=== PATIENT | female | born 1945 | race Caucasian/White ===

== ENCOUNTER 2017-01-13 12:40 | Inpatient (IN) | payer OTHER ==
[2017-01-13 12:49] VITALS: BMI 41.5
[2017-01-13] MEDS ORDERED: DALBAVANCIN HCL 1,500 MG in DEXTROSE 5%-WATER - 500 ML IVPB ONE (14:18)
--- NOTE | 2017-01-13 14:25 | PDOC ---
History of Present Illness - General Chief Complaint: Redness To Affected Area Stated Complaint: SWOLLEN FACE Time Seen by Provider: 01/13/17 13:58 History Source: Patient Exam Limitations: No Limitations - History of Present Illness Initial Comments: 01/13/17 14:20 Came to emergency department with complaints of swelling and pain to the nose and face. States last night had worsening in her cold symptoms with sneezing and frequent nasal blowing. Woke up this morning with severely swollen, erythematous, and tender nose 01/13/17 14:24 Timing/Duration: reports: changing over time, getting worse Severity: Yes: moderate, severe Location: reports: face Associated Symptoms: reports: blisters, change in skin texture, flushing, headache, rash Past History - Travel Traveled outside of the country in the last 30 days: No Close contact w/someone who was outside of country & ill: No - Past Medical History Allergies/Adverse Reactions: Allergies Allergy/AdvReac Type Severity Reaction Status Date / Time No Known Allergies Allergy Verified 01/13/17 12:45 Home Medications: Ambulatory Orders Amlodipine Besylate 5 mg PO DAILY 01/13/17 Apixaban [Eliquis] 5 mg PO BID 01/13/17 Ergocalciferol (Vitamin D2) [Vitamin D2] 2,000 unit PO DAILY 01/13/17 Furosemide [Lasix] 20 mg PO DAILY 01/13/17 Levothyroxine [Synthroid -] 100 mcg PO DAILY 01/13/17 Lisinopril/Hydrochlorothiazide [Lisinopril-Hctz 20-25 mg Tab] 1 each PO DAILY Metoprolol Succinate [Toprol Xl] 50 mg PO DAILY 01/13/17 Cardiac Disorders: Yes (A.FIB , ABLATION) HTN: Yes Thyroid Disease: Yes (HYPO) - Surgical History Cholecystectomy: Yes - Psycho/Social/Smoking Cessation Hx Anxiety: No Suicidal Ideation: No Smoking History: Never smoked Have you smoked in the past 12 months: No Information on smoking cessation initiated: No Hx Alcohol Use: No Drug/Substance Use Hx: No Substance Use Type: None Review of Systems - Review of Systems Able to Perform ROS?: Yes Is the patient limited Indian proficient: Yes Constitutional: Yes: Symptoms Reported, See HPI, Chills, Fever, Malaise HEENTM: Yes: Symptoms Reported, See HPI, Nose Pain, Nose Congestion (swelling and crusting ) Respiratory: Yes: See HPI. No: Symptoms reported ABD/GI: Yes: See HPI. No: Symptoms Reported : Yes: See HPI. No: Symptoms Reported Musculoskeletal: No: Symptoms Reported Integumentary: Yes: Symptoms Reported, See HPI, Erythema, Flushing Neurological: Yes: Symptoms reported, See HPI, Headache All Other Systems: Reviewed and Negative *Physical Exam - Vital Signs Last Vital Signs Temp Pulse Resp BP Pulse Ox 97.8 F 72 18 152/74 100 01/13/17 12:46 01/13/17 12:46 01/13/17 12:46 01/13/17 12:46 01/13/17 12:46 - Physical Exam General Appearance: Yes: Nourished, Appropriately Dressed, Apparent Distress, Moderate Distress HEENT: positive: DEANNA, TMs Normal, Pharynx Normal (has eroded lower left posterior molar), Nasal Congestion (swelling/ redness/ weeping and crusting ot nose / ), Rhinorrhea Neck: positive: Tender, Supple, Lymphadenopathy (R), Lymphadenopathy (L) Respiratory/Chest: positive: Lungs Clear, Normal Breath Sounds Gastrointestinal/Abdominal: positive: Normal Bowel Sounds, Soft. negative: Tender Musculoskeletal: positive: Normal Inspection Integumentary: positive: Erythema (clinically crusted lesions with grossly swollen nose, into bilateral nares with some purulent drainage noted and anterior aspects. Has a superficial abrasion to distal nose, with no drainage, patient states is atraumatic), Pale Neurologic: positive: recyclable materials sorter II-XII NML intact ED Treatment Course - LABORATORY CBC & Chemistry Diagram: 01/13/17 14:20 01/13/17 14:20 - RADIOLOGY Radiology Studies Ordered: Category Date Time Status CHEST PA & LAT [RAD] Stat Radiology 01/13/17 14:20 Ordered *DC/Admit/Observation/Transfer Diagnosis at time of Disposition: Cellulitis of face - Discharge Dispostion Condition at time of disposition: Stable Admit: Yes
[2017-01-13 14:31] LABS: BASOPHIL 0.4 % (0-2.0); EOSINOPHIL 0.3 % (0-4.5); MCH 28.5 pg (25.7-33.7); MCHC 32.3 g/dl (32.0-36.0); MEAN CELL VOLUME 88.4 fl (80-96); MEAN PLT VOLUME 9.2 fl (7.5-11.1); NEUTROPHILS 79.3 % (42.8-82.8); PLATELET COUNT 151 K/MM3 (134-434); RDW 15.6 % (11.6-15.6); WHITE BLOOD COUNT 10.9 K/mm3 (4.0-10.0)
[2017-01-13 14:44] LABS: INR 2.16 (0.82-1.09); PROTHROMBIN TIME (PATIENT) 24.1 SEC (9.98-11.88)
[2017-01-13] MEDS ORDERED: VANCOMYCIN 1,000 MG in DEXTROSE 5%-WATER - 250 ML IVPB ONE (14:50)
[2017-01-13 14:59] LABS: ALBUMIN 3.5 g/dl (3.4-5.0); BILIRUBIN,TOTAL 0.8 mg/dL (0.2-1.0); COCKROFT - GAULT 68.68; CREATININE 1.2 mg/dL (0.55-1.02); TOT PROT 7.7 g/dl (6.4-8.2)
[2017-01-13] MEDS ORDERED: VANCOMYCIN 1 GRAM (PRE-DOCKED) 250 ML IVPB ONE (15:03)
[2017-01-13 15:36] LABS: URINE APPEARANCE CLEAR; URINE BILIRUBIN NEGATIVE (NEGATIVE); URINE COLOR STRAW; URINE GLUCOSE (UA) NEGATIVE (NEGATIVE); URINE KETONE NEGATIVE (NEGATIVE); URINE NITRITE NEGATIVE (NEGATIVE); URINE PROTEIN NEGATIVE (NEGATIVE); URINE UROBILINOGEN NEGATIVE E.U./dl (0.2-1.0)
[2017-01-13 15:37] LABS: URINE BLOOD 1+ (NEGATIVE); URINE LEUK ESTERASE TRACE (NEGATIVE)
[2017-01-13 15:38] LABS: URINE HYALINE CAST 1 /lpf; URINE RBC <1 /hpf (0-3); URINE WBC 3 /hpf (3-5)
--- NOTE | 2017-01-13 16:21 | PN ---
Teaching Attending Note Name of Resident: Thao Isidro ATTENDING PHYSICIAN STATEMENT I saw and evaluated the patient. I reviewed the resident's note and discussed the case with the resident. I agree with the resident's findings and plan as documented. SUBJECTIVE:71 year old female presents today c/o facial redness and swelling x 1 day. Denies trauma, denies lacerations, denies rash or pruritus. No history of skin infections before. Reports fevers and chills 3 days ago. Took 2 doses of amoxicillin 500 with no improvement of her symptoms. PMH: HTN Hypothyroidism Vaginal Bleeding AFIB Sx : scheduled for an elective hysterectomy EP ablation ALL: none Home Medications Medication Instructions Recorded Amlodipine Besylate 5 mg PO DAILY 01/13/17 Apixaban [Eliquis] 5 mg PO BID 01/13/17 Ergocalciferol (Vitamin D2) 2,000 unit PO DAILY 01/13/17 [Vitamin D2] Furosemide [Lasix] 20 mg PO DAILY 01/13/17 Levothyroxine [Synthroid -] 100 mcg PO DAILY 01/13/17 Lisinopril/Hydrochlorothiazide 1 each PO DAILY 01/13/17 [Lisinopril-Hctz 20-25 mg Tab] Metoprolol Succinate [Toprol Xl] 50 mg PO DAILY 01/13/17 OBJECTIVE: Vital Signs Temperature 97.8 F 01/13/17 12:46 Pulse Rate 72 01/13/17 12:46 Respiratory Rate 18 01/13/17 12:46 Blood Pressure 152/74 01/13/17 12:46 O2 Sat by Pulse Oximetry (%) 100 01/13/17 12:46 General Appearance: Yes: Nourished, Appropriately Dressed HEENT: positive: DEANNA, TMs Normal, Pharynx Normal (has eroded lower left posterior molar), Nasal Congestion, sewlling and redness of the face ( butterfly dristribution) Neck: positive: Tender, Supple, Lymphadenopathy (R), Lymphadenopathy (L) Respiratory/Chest: positive: Lungs Clear, Normal Breath Sounds Gastrointestinal/Abdominal: positive: Normal Bowel Sounds, Soft. negative: Tender Musculoskeletal: positive: Normal Inspection Integumentary: positive: Erythema (clinically crusted lesions with grossly swollen nose, into bilateral nares with some purulent drainage noted and anterior aspects. Has abrasion to the tip of the nose, with no drainage, patient states is atraumatic). Acrylic nails . Neurologic: positive: remote sensing technologist II-XII NML intact Abnormal Lab Results 01/13/17 01/13/17 01/13/17 14:20 14:20 14:20 WBC 10.9 H RBC 3.47 L Hgb 9.9 L Hct 30.7 L Monocytes % 10.6 H INR 2.16 H Sodium 135 L BUN 22 H Creatinine 1.2 H AST 12 L Urine Blood Ur Leukocyte Esterase 01/13/17 15:28 WBC RBC Hgb Hct Monocytes % INR Sodium BUN Creatinine AST Urine Blood 1+ H Ur Leukocyte Esterase Trace H ASSESSMENT AND PLAN: 1. Facial cellulitis - port of entry could have been nostrals and possible trauma to mucosa ( patient has long acrylic nails). No signs of sepsis . No pain. - IV Unasyn /Vanco - demarcate area and monitor for improvement - MRSA swab - if no improvement - st scan max/facial to r/o abscess 2. Acute renal insufficiency - possibly dehydration - hold lasix - IVF - Repeat BMP in am - obtain UA 3. Afib -rate controlled - c/w Eliquis 4. HTN - suboptimal control - increase amlodipine - monitor BP 5. DVT PPX - - on Eliquis Based on patients symptoms upon presentation, failure of outpatient treatment with oral antibiotics and need for broad spectrum IV antibiotic coverge / risk of MDR bacteria -she meets medoical necessity for an inpatient hospitalization .
[2017-01-13] MEDS ORDERED: FUROSEMIDE 20 MG TABLET (FP) PO SCH (16:45)
[2017-01-13] MEDS ORDERED: PATIENT'S OWN MEDICATION (NON-FORMULARY) (Ergocalciferol (Vitamin D2) [Vitamin D2] 2,000 U PO SCH (16:45)
--- NOTE | 2017-01-13 16:51 | HP ---
CHIEF COMPLAINT: " Face swelling" PCP: Dr. Jassi Orantes ([place], [place]) Scrum Project Manager: Dr. Lacy Del Castillo COPY CUTTER: Kaya Best ([facility]) HISTORY OF PRESENT ILLNESS: Patient is a 71 year old female with significant past medical history of Anemia , Hypertension, Hypothyroidism, Atrial fibrillation on elliquis (s/p ablation in Aug, 2015) presented to the ED with the chief complaints of face swelling x 1 day. As per the patient, she was apparently well 3-4 days ago, when she started having fever, T-max 102F associated with sweating but no chills or rigors, resolved after taking Tylenol. Patient also mentions to have runny nose , watery eyes and productive cough producing white phelgm. This morning at 1am, she noticed her nose started swelling with redness around the nose, she went back to sleep, woke up at 5:30am and noticed the swelling had gotten worse, redness started spreading in the cheeks. She then took Amoxicillin 500mg at 5:30am and at 11:30am today but it didn't get better and came to the ED. Patient mentions she got the antibiotics renewed from her Dentist. Today, she only complaints of swelling of nose and redness in the face, no fever , chills, rigors or sweating. No h/o picking the nose, insect bite, nose bleeds. Denies chest pain, sob, cough, abdominal pain, nausea or vomiting. Does get palpitations on/off secondary to atrial fibrillation. Bowel/Bladder habit normal. Sleep/Appetite decreased since illness. Patient reports to have vaginal bleeding few months ago for which she had a CT abdomen/pelvis; Transvaginal ultrasound done and as per her COPY CUTTER is scheduled for a Hysterectomy on 01/30/2017 at [facility]. ER course was notable for: (1) Leukocytosis of 10.9; INR 2.16; Creatinine 1.2/GFR 44.41; blood sugar 86 (2) Vancomycin 1000mg IV once Recent Travel: Moved from [place], [place] a month ago. PAST MEDICAL HISTORY: Anemia, Hypertension, Hypothyroidism, Atrial fibrillation on elliquis (s/p ablation in Aug, 2015) PAST SURGICAL HISTORY: (s/p ablation in Aug, 2015) Social History: Lives alone Smoking: Left 28 years ago, smoked 1 pack/week for 20 years Alcohol: Occasional Drugs: Denies Family History: Father of colon cancer. 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 Allergies No Known Allergies Allergy (Verified 01/13/17 12:45) HOME MEDICATIONS: Home Medications Medication Instructions Recorded Amlodipine Besylate 5 mg PO DAILY 01/13/17 Apixaban [Eliquis] 5 mg PO BID 01/13/17 Ergocalciferol (Vitamin D2) 2,000 unit PO DAILY 01/13/17 [Vitamin D2] Furosemide [Lasix] 20 mg PO DAILY 01/13/17 Levothyroxine [Synthroid -] 100 mcg PO DAILY 01/13/17 Lisinopril/Hydrochlorothiazide 1 each PO DAILY 01/13/17 [Lisinopril-Hctz 20-25 mg Tab] Metoprolol Succinate [Toprol Xl] 50 mg PO DAILY 01/13/17 REVIEW OF SYSTEMS CONSTITUTIONAL: Absent: fever, chills, diaphoresis, generalized weakness, malaise, loss of appetite, weight change HEENT: Absent: rhinorrhea, nasal congestion, throat pain, throat swelling, difficulty swallowing, mouth swelling, ear pain, eye pain, visual changes CARDIOVASCULAR: Absent: chest pain, syncope, palpitations, irregular heart rate, lightheadedness , peripheral edema RESPIRATORY: Absent: cough, shortness of breath, dyspnea with exertion, orthopnea, wheezing, stridor, hemoptysis GASTROINTESTINAL: Absent: abdominal pain, abdominal distension, nausea, vomiting, diarrhea, constipation, melena, hematochezia GENITOURINARY: Absent: dysuria, frequency, urgency, hesitancy, hematuria, flank pain, genital pain MUSCULOSKELETAL: Absent: myalgia, arthralgia, joint swelling, back pain, neck pain SKIN: Present: swelling of the nose, redness of the face Absent: rash, itching, pallor HEMATOLOGIC/IMMUNOLOGIC: Absent: easy bleeding, easy bruising, lymphadenopathy, frequent infections ENDOCRINE: Absent: unexplained weight gain, unexplained weight loss, heat intolerance, cold intolerance NEUROLOGIC: Absent: headache, focal weakness or paresthesias, dizziness, unsteady gait, seizure, mental status changes, bladder or bowel incontinence PSYCHIATRIC: Absent: anxiety, depression, suicidal or homicidal ideation, hallucinations. PHYSICAL EXAMINATION GENERAL: Elderly female, Awake, alert, and fully oriented, in no acute distress. HEAD: Normal with no signs of trauma. EYES: EOM intact, no pallor or icterus. EARS, NOSE, THROAT: Ears normal. Moist mucous membranes. NECK: Supple. LUNGS: Breath sounds equal, clear to auscultation bilaterally. No wheezes, and no crackles. No accessory muscle use. HEART: Regular rate and rhythm, normal S1 and S2 without murmur. ABDOMEN: Soft, nontender, not distended, normoactive bowel sounds, no guarding, no rebound, no masses. No hepatomegaly or splenomegaly. MUSCULOSKELETAL: Normal range of motion at all joints. No bony deformities or tenderness. No CVA tenderness. UPPER EXTREMITIES: 2+ pulses, warm, well-perfused. No cyanosis. No clubbing. No peripheral edema. LOWER EXTREMITIES: 2+ pulses, warm, well-perfused. No calf tenderness. No peripheral edema. NEUROLOGICAL: Cranial nerves II-XII intact. Normal speech. Normal gait. PSYCHIATRIC: Cooperative. Good eye contact. Appropriate mood and affect. SKIN: Swollen nasal area with slight edema over the b/l cheeks; small area of abrasion 0.5 x0.3cm at the tip of the nose, no bleeding from the nose, no nasal bleed, erythema extending from the nose to the b/l cheeks, no weeping or crusting, no tenderness on palpation INTEGUMENTS: Long nails-looks unhygienic. ASSESSMENT/PLAN: Patient is a 71 year old female with significant past medical history of Anemia , Hypertension, Hypothyroidism, Atrial fibrillation on elliquis (s/p ablation in Aug, 2015) presented to the ED with the chief complaints of face swelling x 1 day. # Cellulitis of the face Patient presented with nose swelling, erythema of the face, small abrasion over the tip of the nose. Took two doses of Amoxicillin- didn't help. Has long nails-looks unhygienic-would recommend patient to cut her nails to prevent worsening of infection. On arrival, she was afebrile, hemodynamically stable, slight leukocytosis 10.9 In the ED, patient received one dose of IV Vancomycin Admitted in Med surg Gentle hydration IV Unasyn 3gm Q8H Day 1 Blood culture pending MRSA screen-nares pending If patient's symptoms gets worse, would consider CT scan of head to r/o any abscess # Normocytic anemia Likely due to Dysfunctional uterine bleeding- undergoing Hysterectomy on 01/30 H/H 9.9/30.7 Monitor H/H and if Hb < 7 transfuse # Acute Kidney Injury with questionable CKD Creatinine 1.2 (baseline unknown) GFR- 44.41 Gentle hydration Avoid nephrotoxic drugs # Atrial Fibrillation-rate controlled s/p ablation in Aug, on Elliquis 5mg PO BID to be continued. Continue Metoprolol 50mg Daily # B/L leg swelling Patient reports she doesn't have any h/o CHF but is on Lasix due to B/L swelling Patient mentioned she recently had an Echo, would get the echo results from patients school social worker once the office opens after the holidays Continue Lasix 20mg PO Daily # Hypertension Continue Amlodipine 5mg PO Daily; Lisinopril/HCTZ # Hypothyroidism Continue Levothyroxie 100 mcg # FEN IV NS @ 75mls/hr Electrolytes WNL Sodium controlled diet # Prophylaxis For DVT: On Elliquis For GI: Not indicated # Code Status: Full Code # Dispo: Admitted in Med-Surg. Duration of stay unknown. Illness, Investigation and Plan of care explained to the patient. She verbalized understanding. Case seen and discussed with Dr. Campbell. Visit type - Emergency Visit Emergency Visit: Yes ED Registration Date: 01/13/17 Care time: The patient presented to the Emergency Department on the above date and was hospitalized for further evaluation of their emergent condition. - New Patient This patient is new to me today: Yes Date on this admission: 01/13/17 - Critical Care Critical Care patient: No
[2017-01-13] MEDS: SODIUM CHLORIDE 1,000 ML IV SCH (17:46)
[2017-01-13] MEDS ORDERED: FUROSEMIDE 20 MG TABLET (FP) PO ONE (19:11)
[2017-01-13] MEDS: AMPICILLIN NA/SULBACTAM NA 3 GM in SODIUM CHLORIDE 100 ML IVPB SCH (20:05)
[2017-01-13] MEDS: APIXABAN 5 MG TABLET PO SCH (21:34)
[2017-01-14] MEDS: AMPICILLIN NA/SULBACTAM NA 3 GM in SODIUM CHLORIDE 100 ML IVPB SCH ×3 (02:39→17:03)
[2017-01-14 08:22] LABS: BASOPHIL 0.6 % (0-2.0); EOSINOPHIL 1.4 % (0-4.5); MCH 29.1 pg (25.7-33.7); MCHC 32.9 g/dl (32.0-36.0); MEAN CELL VOLUME 88.4 fl (80-96); MEAN PLT VOLUME 9.5 fl (7.5-11.1); NEUTROPHILS 74.5 % (42.8-82.8); PLATELET COUNT 153 K/MM3 (134-434); RDW 15.3 % (11.6-15.6); WHITE BLOOD COUNT 11.8 K/mm3 (4.0-10.0)
[2017-01-14 08:30] LABS: INR 1.69 (0.82-1.09); PROTHROMBIN TIME (PATIENT) 18.8 SEC (9.98-11.88)
[2017-01-14 08:34] LABS: ALBUMIN 3.2 g/dl (3.4-5.0); CALCIUM 8.7 mg/dL (8.5-10.1)
--- NOTE | 2017-01-14 08:35 | EKG ---
Test Reason : Blood Pressure : / mmHG Vent. Rate : 076 BPM Atrial Rate : 076 BPM P-R Int : 226 ms QRS Dur : 100 ms QT Int : 382 ms P-R-T Axes : 006 059 124 degrees QTc Int : 429 ms SINUS RHYTHM WITH 1ST DEGREE A-V BLOCK NONSPECIFIC T WAVE ABNORMALITY ABNORMAL ECG WHEN COMPARED WITH ECG OF 20-JUL-1998 13:24, [place] INTERVAL HAS INCREASED NONSPECIFIC T WAVE ABNORMALITY NOW EVIDENT IN INFERIOR LEADS NONSPECIFIC T WAVE ABNORMALITY NOW EVIDENT IN ANTERIOR LEADS Confirmed by EUGENIA SHAY MD ([id number]) on 01/14/2017 8:35:23 AM Referred By: Confirmed By:EUGENIA SHAY MD
[2017-01-14 08:37] LABS: BILIRUBIN,TOTAL 0.9 mg/dL (0.2-1.0); COCKROFT - GAULT 74.885; CREATININE 1.1 mg/dL (0.55-1.02); TOT PROT 7.3 g/dl (6.4-8.2)
--- NOTE | 2017-01-14 09:06 | PN ---
Progress Note (short form) - Note Progress Note: ID consult dictated facial cellulitis/erysepilas? vanco/unasyn aso/antidnase b f/u cultures Problem List - Problems (1) Facial cellulitis Code(s): L03.211 - CELLULITIS OF FACE
[2017-01-14] MEDS: FUROSEMIDE 20 MG TABLET (FP) PO SCH (09:37)
[2017-01-14] MEDS: LISINOPRIL 20 MG TABLET (FP) PO SCH (09:37)
[2017-01-14] MEDS: amLODIPine BESYLATE 5 MG TABLET (FP) PO SCH (09:37)
[2017-01-14] MEDS: METOPROLOL SUCCINATE 50 MG TAB.SR.24H (FP) PO SCH (09:37)
[2017-01-14] MEDS: APIXABAN 5 MG TABLET PO SCH ×2 (09:37→21:34)
[2017-01-14] MEDS: SODIUM CHLORIDE 1,000 ML IV SCH (09:47)
[2017-01-14] MEDS ORDERED: PATIENT'S OWN MEDICATION (NON-FORMULARY) (Lisinopril/Hydrochlorothiazide [Lisinopril-Hctz PO SCH (10:00)
[2017-01-14] MEDS ORDERED: ERGOCALCIFEROL (VITAMIN D2) 50,000 UNIT CAPSULE (FP) PO SCH (10:00)
[2017-01-14] MEDS ORDERED: HYDROCHLOROTHIAZIDE 25 MG TABLET (FP) PO SCH (10:00)
[2017-01-14] MEDS ORDERED: LEVOTHYROXINE NA 100 MCG TABLET (FP) PO SCH (10:00)
--- NOTE | 2017-01-14 10:40 | PN ---
Physical Exam: SUBJECTIVE: Patient seen and examined Patient is comfortable with no acute distress. As per patient her face is worse today, more swelling and redness. OBJECTIVE: Vital Signs Temperature 98.1 F 01/14/17 06:00 Pulse Rate 70 01/14/17 06:00 Respiratory Rate 18 01/14/17 06:00 Blood Pressure 164/91 01/14/17 06:00 O2 Sat by Pulse Oximetry (%) 96 01/13/17 21:00 GENERAL: The patient is awake, alert, and fully oriented, in no acute distress. HEAD: Normal with no signs of trauma. EYES: PERRL, extraocular movements intact, sclera anicteric, conjunctiva clear. ENT: Ears normal, oropharynx clear without exudates, moist mucous membranes. NECK: Trachea midline, full range of motion, supple. Facial swelling BL with redness including her nose LUNGS: Breath sounds equal, clear to auscultation bilaterally, no wheezes, no crackles, no accessory muscle use. HEART: Regular rate and rhythm, S1, S2 without murmur, rub or gallop. ABDOMEN: Soft, nontender, nondistended, normoactive bowel sounds, no guarding, no rebound, no hepatosplenomegaly, no masses. EXTREMITIES: 2+ pulses, warm, well-perfused, no edema. NEUROLOGICAL: Cranial nerves II through XII grossly intact. Normal speech, gait is stable. PSYCH: Normal mood, normal affect. SKIN: Warm, dry, normal turgor, no rashes or lesions noted Laboratory Results - last 24 hr 01/14/17 01/14/17 01/14/17 06:30 06:30 06:30 WBC 11.8 H RBC 3.34 L Hgb 9.7 L Hct 29.6 L MCV 88.4 MCHC 32.9 RDW 15.3 Plt Count 153 MPV 9.5 Neutrophils % 74.5 Lymphocytes % 12.8 D Monocytes % 10.7 H Eosinophils % 1.4 D Basophils % 0.6 INR 1.69 H Sodium 140 Potassium 3.8 Chloride 104 Carbon Dioxide 25 Anion Gap 11 BUN 19 H Creatinine 1.1 H Creat Clearance w eGFR 49.10 Random Glucose 81 Calcium 8.7 Total Bilirubin 0.9 AST 8 L D ALT 12 Alkaline Phosphatase 62 Total Protein 7.3 Albumin 3.2 L Active Medications Generic Name Dose Route Start Last Admin Trade Name Freq PRN Reason Stop Dose Admin Amlodipine Besylate 5 mg 01/14/17 10:00 01/14/17 09:37 Norvasc - PO 5 mg DAILY GRACE Administration Apixaban 5 mg 01/13/17 22:00 01/14/17 09:37 Eliquis - PO 5 mg BID GRACE Administration Ergocalciferol 2,000 unit 01/14/17 10:00 01/14/17 09:42 Drisdol - PO Not Given DAILY GRACE Furosemide 20 mg 01/14/17 10:00 01/14/17 09:37 Lasix - PO 20 mg DAILY GRACE Administration Sodium Chloride 1,000 mls @ 75 mls/hr 01/13/17 16:45 01/14/17 09:47 Normal Saline - IV 75 mls/hr ASDIR GRACE Administration Ampicillin Sodium/Sulbactam 100 mls @ 200 mls/hr 01/13/17 18:00 01/14/17 09:37 Sodium 3 gm/ Sodium Chloride IVPB 200 mls/hr Q8H-IV GRACE Administration Vancomycin HCl 1,250 mg/ 250 mls @ 166.667 mls/hr 01/14/17 10:00 Dextrose IVPB BID GRACE Protocol Levothyroxine Sodium 100 mcg 01/14/17 10:00 01/14/17 09:37 Synthroid - PO 100 mcg DAILY GRACE Administration Lisinopril 20 mg 01/14/17 10:00 01/14/17 09:37 Prinivil PO 20 mg DAILY GRACE Administration Metoprolol Succinate 50 mg 01/14/17 10:00 01/14/17 09:37 Toprol Xl - PO 50 mg DAILY GRACE Administration Home Medications Medication Instructions Recorded Amlodipine Besylate 5 mg PO DAILY 01/13/17 Apixaban [Eliquis] 5 mg PO BID 01/13/17 Ergocalciferol (Vitamin D2) 2,000 unit PO DAILY 01/13/17 [Vitamin D2] Furosemide [Lasix] 20 mg PO DAILY 01/13/17 Levothyroxine [Synthroid -] 100 mcg PO DAILY 01/13/17 Lisinopril/Hydrochlorothiazide 1 each PO DAILY 01/13/17 [Lisinopril-Hctz 20-25 mg Tab] Metoprolol Succinate [Toprol Xl] 50 mg PO DAILY 01/13/17 ASSESSMENT/PLAN: Patient is a 71yo female presented with facial swelling. # Acute Facial cellulitis/erysepilas - cause Unknown , No signs of sepsis . No pain. Continue IV Unasyn /Vanco , MRSA swab. if no improvement - CT scan max/facial to r/o abscess # Acute renal insufficiency - possibly dehydration ; hold lasix ; IVF ; Repeat BMP in am ; obtain UA # Afib -rate controlled on Eliquis # HTN - suboptimal control , increase amlodipine , monitor BP DVT PPX - on Eliquis Visit type - Emergency Visit Emergency Visit: Yes ED Registration Date: 01/13/17 Care time: The patient presented to the Emergency Department on the above date and was hospitalized for further evaluation of their emergent condition. - New Patient This patient is new to me today: Yes Date on this admission: 01/14/17 - Critical Care Critical Care patient: No
--- NOTE | 2017-01-14 11:08 | CONS ---
INFECTIOUS DISEASE CONSULTATION: DATE OF CONSULTATION: DATE OF DICTATION: 01/14/2017 HISTORY OF PRESENT ILLNESS: This is a 71-year-old woman who presents to the emergency room with acute onset of facial swelling and erythema yesterday morning. She gives a history of having 3 days of fever and cold symptoms. She took Tylenol at that time. She totally improved. She was afebrile on Saturday. The original febrile illness was accompanied by cough and running nose. As stated on Saturday, she had no fever. Saturday, she woke up at 5:30 in the morning with erythema of her face. She took amoxicillin. She went back to sleep, and at 11:30 she took another amoxicillin, and she came to the emergency room. She denies any fevers or chills. She has no nausea, vomiting, diarrhea or dysuria. She has no history of any strep throat. She has no trouble swallowing. Currently her cough is resolved. She has no shortness of breath. She has not been scratching or picking on her face. She has not had any insect bites, and she has no pets who could have scratched her. She has no rash elsewhere. PAST MEDICAL HISTORY: Notable for anemia, hypertension, hypothyroidism, atrial fibrillation. SURGICAL HISTORY: Notable for an attempted ablation in August of 2015 that failed. She is scheduled for a hysterectomy for vaginal bleeding in January. SOCIAL HISTORY: She lives alone. She is a former smoker. She stopped 30 years ago. No history of any substance use. FAMILY HISTORY: Notable for colon cancer. ALLERGIES: She has no known drug allergies. MEDICATIONS AT HOME: Amlodipine, Eliquis, vitamin D, Lasix, Synthroid, lisinopril, hydrochlorothiazide and metoprolol. She has not been on any medications. PHYSICAL EXAM: General: She is awake and alert. She looks well. Her temperature is 98.1. She has been afebrile since admission. Vital signs: Pulse is 70. Blood pressure 164/91. Respiratory rate is 18. HEENT exam: She is normocephalic. Her eyes are anicteric. She has full extraocular movements. Her neck is supple. She has no thrush. She has no pharyngitis. She has good dentition. Lungs: Clear to auscultation. Heart: Regular rate and rhythm. Abdomen: Soft, nontender. Extremities: Without edema. Skin: She has an erythematous, sort of scaly rash with induration of both her cheeks as well as across her nose. Her nose is swollen with some honey crusting. LABS: Notable for a white count of 10.9, hemoglobin 9.9. Platelets are 151. INR is 2. BUN and creatinine are 19 and 1.1. LFTs are normal. Urinalysis has 3 white cells. Blood cultures and nares screens are pending. SUMMARY: In summary, this is a 71-year-old woman with facial cellulitis that I suspect is erysipelas, given the nature of the lesions and the crusting. PLAN: 1. I would suggest we continue her on vancomycin and UniSyn, as ordered with followup of cultures. 2. Further recommendations to follow based on her clinical course. ELY SALVADOR M.D. DINA/[id number]
[2017-01-14] MEDS: VANCOMYCIN 1,250 MG in DEXTROSE 5%-WATER - 250 ML IVPB SCH ×2 (11:12→21:34)
[2017-01-14] MEDS ORDERED: PT OWN MED DRAWER 7, Y5N ONE ×2 (16:36→20:04)
[2017-01-15] MEDS: AMPICILLIN NA/SULBACTAM NA 3 GM in SODIUM CHLORIDE 100 ML IVPB SCH ×3 (01:40→18:09)
[2017-01-15] MEDS: SODIUM CHLORIDE 1,000 ML IV SCH (06:09)
[2017-01-15] MEDS: LEVOTHYROXINE NA 100 MCG TABLET (FP) PO SCH (06:09)
[2017-01-15 08:49] LABS: MCH 29.1 pg (25.7-33.7); MCHC 32.9 g/dl (32.0-36.0); MEAN CELL VOLUME 88.4 fl (80-96); MEAN PLT VOLUME 9.4 fl (7.5-11.1); PLATELET COUNT 157 K/MM3 (134-434); RDW 15.6 % (11.6-15.6); WHITE BLOOD COUNT 7.2 K/mm3 (4.0-10.0)
[2017-01-15] MEDS ORDERED: PT OWN MED DRAWER 7, Y5N ONE ×3 (08:59→20:43)
[2017-01-15 09:00] LABS: ALBUMIN 3.1 g/dl (3.4-5.0); BILIRUBIN,TOTAL 0.7 mg/dL (0.2-1.0); CALCIUM 8.6 mg/dL (8.5-10.1); COCKROFT - GAULT 82.45; TOT PROT 7.2 g/dl (6.4-8.2)
[2017-01-15] MEDS: CHOLECALCIFEROL (VITAMIN D3) 1,000 UNIT TABLET (FP) PO SCH (09:14)
[2017-01-15] MEDS: APIXABAN 5 MG TABLET PO SCH ×2 (09:15→21:33)
[2017-01-15] MEDS: LISINOPRIL 20 MG TABLET (FP) PO SCH (09:15)
[2017-01-15] MEDS: amLODIPine BESYLATE 5 MG TABLET (FP) PO SCH (09:15)
[2017-01-15] MEDS: FUROSEMIDE 20 MG TABLET (FP) PO SCH (09:15)
[2017-01-15] MEDS: METOPROLOL SUCCINATE 50 MG TAB.SR.24H (FP) PO SCH (09:15)
[2017-01-15] MEDS: VANCOMYCIN 1,250 MG in DEXTROSE 5%-WATER - 250 ML IVPB SCH ×2 (11:01→21:42)
--- NOTE | 2017-01-15 11:26 | PN ---
Progress Note (short form) - Note Progress Note: feels better no fevers NAD Vital Signs Period Temp Pulse Resp BP Sys/Soria Pulse Ox Last 24 Hr 98.3 F-98.7 F 65-70 17-20 144-150/74-79 98 face with less erythema, more crusting of nostrils, nose less swollen cor-rrr lungs clear ext no edema CBC, BMP 01/15/17 08:41 01/15/17 08:41 Microbiology 01/13/17 14:19 Blood - Peripheral Venous Blood Culture - Preliminary NO GROWTH OBTAINED AFTER 24 HOURS, INCUBATION TO CONTINUE FOR 4 DAYS. 01/13/17 14:20 Blood - Peripheral Venous Blood Culture - Preliminary NO GROWTH OBTAINED AFTER 24 HOURS, INCUBATION TO CONTINUE FOR 4 DAYS. nares culture pending a/p facial cellulitis/erysepilas?-improved vanco/unasyn to continue aso/antidnase b ordered f/u cultures d/w hospitalist service
--- NOTE | 2017-01-15 12:52 | PN ---
Physical Exam: SUBJECTIVE: Patient seen and examined at bed side this morning. No complaints. Patient says she noticed the facial swelling has decreased than yesterday. Denies fever, chills, rigors, sweating, chest pain, sob, cough, palpitation, abdominal pain, nausea or vomiting. Bowel/Bladder habit normal. Sleep/Appetite normal. OBJECTIVE: Vital Signs Period Temp Pulse Resp BP Sys/Soria Pulse Ox Last 24 Hr 97.5 F-98.7 F 65-71 17-20 144-161/71-79 98 GENERAL: Elderly female, Awake, alert, and fully oriented, in no acute distress. HEAD: Normal with no signs of trauma. EYES: EOM intact, no pallor or icterus. EARS, NOSE, THROAT: Ears normal. Moist mucous membranes. NECK: Supple. LUNGS: Breath sounds equal, clear to auscultation bilaterally. No wheezes, and no crackles. No accessory muscle use. HEART: Regular rate and rhythm, normal S1 and S2 without murmur. ABDOMEN: Soft, nontender, not distended, normoactive bowel sounds, no guarding, no rebound, no masses. No hepatomegaly or splenomegaly. MUSCULOSKELETAL: Normal range of motion at all joints. No bony deformities or tenderness. No CVA tenderness. UPPER EXTREMITIES: 2+ pulses, warm, well-perfused. No cyanosis. No clubbing. No peripheral edema. LOWER EXTREMITIES: 2+ pulses, warm, well-perfused. No calf tenderness. No peripheral edema. NEUROLOGICAL: Cranial nerves II-XII intact. Normal speech. Normal gait. PSYCHIATRIC: Cooperative. Good eye contact. Appropriate mood and affect. SKIN: Swollen nasal area with slight edema over the b/l cheeks; small area of abrasion 0.25 x0.3cm at the tip of the nose, no bleeding from the nose, no nasal bleed, erythema extending from the nose to the b/l cheeks, slight weeping / crusting over the nose, no tenderness on palpation INTEGUMENTS: Long nails-looks unhygienic. Laboratory Results - last 24 hr 01/15/17 01/15/17 01/15/17 06:50 08:41 08:41 WBC 7.2 D RBC 3.19 L Hgb 9.3 L Hct 28.2 L MCV 88.4 MCHC 32.9 RDW 15.6 Plt Count 157 MPV 9.4 Sodium 140 Potassium 3.3 L Chloride 106 Carbon Dioxide 26 Anion Gap 8 BUN 13 D Creatinine 1.0 Creat Clearance w eGFR 54.81 Random Glucose 76 Calcium 8.6 Total Bilirubin 0.7 D AST 11 L D ALT 12 Alkaline Phosphatase 60 Total Protein 7.2 Albumin 3.1 L Anti-Streptolysin Scrn Cancelled Active Medications Generic Name Dose Route Start Last Admin Trade Name Garciaq PRN Reason Stop Dose Admin Amlodipine Besylate 5 mg 01/14/17 10:00 01/15/17 09:15 Norvasc - PO 5 mg DAILY GRACE Administration Apixaban 5 mg 01/13/17 22:00 01/15/17 09:15 Eliquis - PO 5 mg BID GRACE Administration Cholecalciferol 2,000 unit 01/15/17 10:00 01/15/17 09:14 Vitamin D3 - PO 2,000 unit DAILY GRACE Administration Furosemide 20 mg 01/14/17 10:00 01/15/17 09:15 Lasix - PO 20 mg DAILY GRACE Administration Sodium Chloride 1,000 mls @ 75 mls/hr 01/13/17 16:45 01/15/17 06:09 Normal Saline - IV 75 mls/hr ASDIR GRACE Administration Ampicillin Sodium/Sulbactam 100 mls @ 200 mls/hr 01/13/17 18:00 01/15/17 09:14 Sodium 3 gm/ Sodium Chloride IVPB 200 mls/hr Q8H-IV GRACE Administration Vancomycin HCl 1,250 mg/ 250 mls @ 166.667 mls/hr 01/14/17 10:00 01/15/17 11:01 Dextrose IVPB 166.667 mls/hr BID GRACE Administration Protocol Levothyroxine Sodium 100 mcg 01/15/17 07:00 01/15/17 06:09 Synthroid - PO 100 mcg DAILY@0700 GRACE Administration Lisinopril 20 mg 01/14/17 10:00 01/15/17 09:15 Prinivil PO 20 mg DAILY GRACE Administration Metoprolol Succinate 50 mg 01/14/17 10:00 01/15/17 09:15 Toprol Xl - PO 50 mg DAILY GRACE Administration ASSESSMENT/PLAN: Patient is a 71 year old female with significant past medical history of Anemia , Hypertension, Hypothyroidism, Atrial fibrillation on elliquis (s/p ablation in Aug, 2015) presented to the ED with the chief complaints of face swelling x 1 day. # Cellulitis of the face-Improving Questionable Erysipelas Leukocytosis 11.8--->7.2 Swelling of the face and nose; erythema has improved Admitted in Med surg Gentle hydration IV Unasyn 3gm Q8H Day 2 Blood culture x2 negative MRSA screen of the nares - No MRSA isolated ASO/Antidnase pending ID consult appreciated # Normocytic anemia Likely due to Dysfunctional uterine bleeding- due for Hysterectomy on 01/30/17 H/H 9.3/28.2 Monitor H/H and if Hb < 7 transfuse # Acute Kidney Injury with questionable CKD- Resolved Creatinine 1.2 (baseline unknown) on admission ----> 1.0 Gentle hydration Avoid nephrotoxic drugs # Atrial Fibrillation-rate controlled s/p ablation in Aug, on Elliquis 5mg PO BID to be continued. Continue Metoprolol 50mg Daily # B/L leg swelling Continue Lasix 20mg PO Daily # Hypertension Continue Amlodipine 5mg PO Daily; Lisinopril 20mg daily. HCTZ on hold. # Hypothyroidism Continue Levothyroxie 100 mcg # FEN IV NS @ 75mls/hr Electrolytes WNL Sodium controlled diet # Prophylaxis For DVT: On Elliquis For GI: Not indicated # Code Status: Full Code # Dispo: Admitted in Med-Surg. Duration of stay unknown. Illness, Investigation and Plan of care explained to the patient. She verbalized understanding. Case seen and discussed with Dr. Marlow Problem List - Problems (1) Facial cellulitis Code(s): L03.211 - CELLULITIS OF FACE Visit type - Emergency Visit Emergency Visit: Yes ED Registration Date: 01/13/17 Care time: The patient presented to the Emergency Department on the above date and was hospitalized for further evaluation of their emergent condition. - New Patient This patient is new to me today: No - Critical Care Critical Care patient: No - Discharge Referral Referred to [facility] Med P.C.: No
[2017-01-15] MEDS ORDERED: POTASSIUM CHLORIDE TABS 20 MEQ TABLET.ER (FP) PO ONE (14:00)
--- NOTE | 2017-01-15 16:26 | PN ---
Teaching Attending Note Name of Resident: Thao Isidro ATTENDING PHYSICIAN STATEMENT I saw and evaluated the patient. I reviewed the resident's note and discussed the case with the resident. I agree with the resident's findings and plan as documented. SUBJECTIVE: Patient is feeling better and looking better, less swelling and redness of the face. OBJECTIVE: Vital Signs Temperature 98.7 F 01/15/17 15:30 Pulse Rate 66 01/15/17 15:30 Respiratory Rate 18 01/15/17 15:30 Blood Pressure 118/64 01/15/17 15:30 O2 Sat by Pulse Oximetry (%) 98 01/15/17 09:00 CBCD WBC 7.2 K/mm3 (4.0-10.0) D 01/15/17 08:41 RBC 3.19 M/mm3 (3.60-5.2) L 01/15/17 08:41 Hgb 9.3 GM/dL (10.7-15.3) L 01/15/17 08:41 Hct 28.2 % (32.4-45.2) L 01/15/17 08:41 MCV 88.4 fl (80-96) 01/15/17 08:41 MCHC 32.9 g/dl (32.0-36.0) 01/15/17 08:41 RDW 15.6 % (11.6-15.6) 01/15/17 08:41 Plt Count 157 K/MM3 (134-434) 01/15/17 08:41 MPV 9.4 fl (7.5-11.1) 01/15/17 08:41 CMP Sodium 140 mmol/L (136-145) 01/15/17 08:41 Potassium 3.3 mmol/L (3.5-5.1) L 01/15/17 08:41 Chloride 106 mmol/L (98-107) 01/15/17 08:41 Carbon Dioxide 26 mmol/L (21-32) 01/15/17 08:41 Anion Gap 8 (8-16) 01/15/17 08:41 BUN 13 mg/dL (7-18) D 01/15/17 08:41 Creatinine 1.0 mg/dL (0.55-1.02) 01/15/17 08:41 Creat Clearance w eGFR 54.81 (>60) 01/15/17 08:41 Random Glucose 76 mg/dL (74-106) 01/15/17 08:41 Calcium 8.6 mg/dL (8.5-10.1) 01/15/17 08:41 Total Bilirubin 0.7 mg/dL (0.2-1.0) D 01/15/17 08:41 AST 11 U/L (15-37) L D 01/15/17 08:41 ALT 12 U/L (12-78) 01/15/17 08:41 Alkaline Phosphatase 60 U/L (45-117) 01/15/17 08:41 Total Protein 7.2 g/dl (6.4-8.2) 01/15/17 08:41 Albumin 3.1 g/dl (3.4-5.0) L 01/15/17 08:41 Current Medications Generic Name Dose Route Start Last Admin Trade Name Freq PRN Reason Stop Dose Admin Amlodipine Besylate 5 mg 01/14/17 10:00 01/15/17 09:15 Norvasc - PO 5 mg DAILY GRACE Administration Apixaban 5 mg 01/13/17 22:00 01/15/17 09:15 Eliquis - PO 5 mg BID GRACE Administration Cholecalciferol 2,000 unit 01/15/17 10:00 01/15/17 09:14 Vitamin D3 - PO 2,000 unit DAILY GRACE Administration Furosemide 20 mg 01/14/17 10:00 01/15/17 09:15 Lasix - PO 20 mg DAILY GRACE Administration Sodium Chloride 1,000 mls @ 75 mls/hr 01/13/17 16:45 01/15/17 06:09 Normal Saline - IV 75 mls/hr ASDIR GRACE Administration Ampicillin Sodium/Sulbactam 100 mls @ 200 mls/hr 01/13/17 18:00 01/15/17 09:14 Sodium 3 gm/ Sodium Chloride IVPB 200 mls/hr Q8H-IV GRACE Administration Vancomycin HCl 1,250 mg/ 250 mls @ 166.667 mls/hr 01/14/17 10:00 01/15/17 11:01 Dextrose IVPB 166.667 mls/hr BID GRACE Administration Protocol Levothyroxine Sodium 100 mcg 01/15/17 07:00 01/15/17 06:09 Synthroid - PO 100 mcg DAILY@0700 GRACE Administration Lisinopril 20 mg 01/14/17 10:00 01/15/17 09:15 Prinivil PO 20 mg DAILY GRCAE Administration Metoprolol Succinate 50 mg 01/14/17 10:00 01/15/17 09:15 Toprol Xl - PO 50 mg DAILY GRACE Administration Home Medications Medication Instructions Recorded Amlodipine Besylate 5 mg PO DAILY 01/13/17 Apixaban [Eliquis] 5 mg PO BID 01/13/17 Ergocalciferol (Vitamin D2) 2,000 unit PO DAILY 01/13/17 [Vitamin D2] Furosemide [Lasix] 20 mg PO DAILY 01/13/17 Levothyroxine [Synthroid -] 100 mcg PO DAILY 01/13/17 Lisinopril/Hydrochlorothiazide 1 each PO DAILY 01/13/17 [Lisinopril-Hctz 20-25 mg Tab] Metoprolol Succinate [Toprol Xl] 50 mg PO DAILY 01/13/17 ASSESSMENT AND PLAN: Patient is a 71yo female presented with facial swelling and redness. # Acute Facial cellulitis/erysepilas - improving on IV Unasyn /Vanco , MRSA swab. if no improvement - CT scan max/facial to r/o abscess # Acute renal insufficiency - improving on IVF continue for now. # Afib -rate controlled on Eliquis, and Toprol # HTN - contolled on amlodipine, toprol and lisinopril and Lasix DVT Px - on Eliquis discharge in am if continues to improve discussed with Dr. Siddiqui
[2017-01-16] MEDS: AMPICILLIN NA/SULBACTAM NA 3 GM in SODIUM CHLORIDE 100 ML IVPB SCH ×2 (02:13→09:27)
[2017-01-16] MEDS: LEVOTHYROXINE NA 100 MCG TABLET (FP) PO SCH (07:01)
[2017-01-16 07:18] LABS: MCHC 32.8 g/dl (32.0-36.0); MEAN CELL VOLUME 88.6 fl (80-96); MEAN PLT VOLUME 9.1 fl (7.5-11.1); PLATELET COUNT 172 K/MM3 (134-434); RDW 15.2 % (11.6-15.6); WHITE BLOOD COUNT 6.1 K/mm3 (4.0-10.0)
[2017-01-16 07:42] LABS: CALCIUM 8.5 mg/dL (8.5-10.1); COCKROFT - GAULT 82.45
[2017-01-16 08:07] LABS: ASLO SCREEN 123.6 IU/mL (0.0-200.0)
[2017-01-16] MEDS: CHOLECALCIFEROL (VITAMIN D3) 1,000 UNIT TABLET (FP) PO SCH (09:26)
[2017-01-16] MEDS: amLODIPine BESYLATE 5 MG TABLET (FP) PO SCH (09:26)
[2017-01-16] MEDS: SODIUM CHLORIDE 1,000 ML IV SCH (09:27)
[2017-01-16] MEDS: LISINOPRIL 20 MG TABLET (FP) PO SCH (09:27)
[2017-01-16] MEDS: METOPROLOL SUCCINATE 50 MG TAB.SR.24H (FP) PO SCH (09:27)
[2017-01-16] MEDS: FUROSEMIDE 20 MG TABLET (FP) PO SCH (09:27)
[2017-01-16] MEDS: APIXABAN 5 MG TABLET PO SCH (09:27)
--- NOTE | 2017-01-16 10:24 | PN ---
Progress Note (short form) - Note Progress Note: feels well swelling erythema improved Vital Signs Period Temp Pulse Resp BP Sys/Soria Pulse Ox Last 24 Hr 97.7 F-98.7 F 57-76 18-20 118-158/64-85 cor-rrr lungs clear abd soft,nt ext no edema face with resolving erythema and edema minimal crusting noted scab on nose CBC, BMP 01/16/17 06:30 01/16/17 06:30 Microbiology 01/13/17 14:19 Blood - Peripheral Venous Blood Culture - Preliminary NO GROWTH OBTAINED AFTER 48 HOURS, INCUBATION TO CONTINUE FOR 3 DAYS. 01/13/17 14:20 Blood - Peripheral Venous Blood Culture - Preliminary NO GROWTH OBTAINED AFTER 48 HOURS, INCUBATION TO CONTINUE FOR 3 DAYS. 01/13/17 20:50 Nares - Mrsa Screen - Left MRSA Screen - Final NO MRSA ISOLATED 01/13/17 20:50 Nares - Mrsa Screen - Right MRSA Screen - Final NO MRSA ISOLATED a/p facial cellulitis most c/w erysepilas mrsa cultures nares negative clinically improving day #3 vancomycin/unasyn can switch to keflex 500 po QID for 7 days Problem List - Problems (1) Facial cellulitis Code(s): L03.211 - CELLULITIS OF FACE
[2017-01-16] MEDS: VANCOMYCIN 1,250 MG in DEXTROSE 5%-WATER - 250 ML IVPB SCH (10:25)
--- NOTE | 2017-01-16 14:32 | DS ---
Physical Exam: SUBJECTIVE: Patient seen and examined at bed side this morning. No complaints. Patient mentions the swelling has decreased and the redness has improved. OBJECTIVE: Vital Signs Period Temp Pulse Resp BP Sys/Soria Pulse Ox Last 24 Hr 97.7 F-98.7 F 57-76 16-20 118-158/64-85 98 PHYSICAL EXAM GENERAL: Elderly female, Awake, alert, and fully oriented, in no acute distress. HEAD: Normal with no signs of trauma. EYES: EOM intact, no pallor or icterus. EARS, NOSE, THROAT: Ears normal. Moist mucous membranes. NECK: Supple. LUNGS: Breath sounds equal, clear to auscultation bilaterally. No wheezes, and no crackles. No accessory muscle use. HEART: Regular rate and rhythm, normal S1 and S2 without murmur. ABDOMEN: Soft, nontender, not distended, normoactive bowel sounds, no guarding, no rebound, no masses. No hepatomegaly or splenomegaly. MUSCULOSKELETAL: Normal range of motion at all joints. No bony deformities or tenderness. No CVA tenderness. UPPER EXTREMITIES: 2+ pulses, warm, well-perfused. No cyanosis. No clubbing. No peripheral edema. LOWER EXTREMITIES: 2+ pulses, warm, well-perfused. No calf tenderness. No peripheral edema. NEUROLOGICAL: Cranial nerves II-XII intact. Normal speech. Normal gait. PSYCHIATRIC: Cooperative. Good eye contact. Appropriate mood and affect. SKIN: Swollen nasal area with slight edema over the b/l cheeks- improving; small area of abrasion 0.25 x0.3cm at the tip of the nose, no bleeding from the nose, no nasal bleed, erythema extending from the nose to the b/l cheeks, slight weeping/ crusting over the nose, no tenderness on palpation INTEGUMENTS: Long nails-looks unhygienic. LABS Laboratory Results - last 24 hr 01/15/17 01/16/17 01/16/17 06:50 06:30 06:30 WBC 6.1 RBC 3.23 L Hgb 9.4 L Hct 28.6 L MCV 88.6 MCHC 32.8 RDW 15.2 Plt Count 172 MPV 9.1 Sodium 141 Potassium 3.9 Chloride 109 H Carbon Dioxide 25 Anion Gap 7 L BUN 13 Creatinine 1.0 Random Glucose 79 Calcium 8.5 Magnesium 2.0 Anti-Streptolysin Scrn 123.6 Microbiology 01/13/17 14:20 Blood - Peripheral Venous Blood Culture - Preliminary NO GROWTH OBTAINED AFTER 72 HOURS, INCUBATION TO CONTINUE FOR 2 DAYS. 01/13/17 14:19 Blood - Peripheral Venous Blood Culture - Preliminary NO GROWTH OBTAINED AFTER 48 HOURS, INCUBATION TO CONTINUE FOR 3 DAYS. 01/13/17 20:50 Nares - Mrsa Screen - Left MRSA Screen - Final NO MRSA ISOLATED 01/13/17 20:50 Nares - Mrsa Screen - Right MRSA Screen - Final NO MRSA ISOLATED HOSPITAL COURSE: Date of Admission:01/13/17 Date of Discharge: 01/16/17 Patient is a 71 year old female with significant past medical history of Anemia , Hypertension, Hypothyroidism, Atrial fibrillation on elliquis (s/p ablation in Aug, 2015) presented to the ED with the chief complaints of face swelling x 1 day. Admitted with the diagnosis of Cellulitis of the face. Patient presented with nose swelling, erythema of the face, small abrasion over the tip of the nose. Took two doses of Amoxicillin- didn't help. Patient was admitted in Med surg. Was treated with IV Unasyn 3gm Q8H. Face swelling decreased, erythema of the face are resolving. Blood cultures and MRSA Screen in nares were negative. Patient was afebrile and hemodynamically stable during hospital stay. Discharging the patient on Keflex 500mg PO QID x 7 days (should finish on 2016). Normocytic anemia- Likely due to Dysfunctional uterine bleeding- due for Hysterectomy on 01/30/17. Didn't require blood transfusion this admission. Acute Kidney Injury with questionable CKD- Resolved with IV hydration. Atrial Fibrillation-rate controlled s/p ablation in Aug, on Elliquis 5mg PO BID to be continued. Continue Metoprolol 50mg Daily B/L leg swelling: Patient reports she recently had an ECHO but doesn't have any heart failure. Was given Lasix 20mg PO Daily by her PCP for B/L Leg swelling. However, the leg swelling could be due to use of Amlodipine. Would consider changing amlodipine to another hypertensive medication when she follows up in a week with her PCP. Hypertension- controlled. Continue Amlodipine 5mg PO Daily; Lisinopril 20mg daily. HCTZ was on hold since patient was on IV fluids. To be continued upon discharge. Hypothyroidism: Continue Levothyroxie 100 mcg Plan of care explained to the patient. She verbalized understanding. Case seen and discussed with Dr. Moody. Minutes to complete discharge: 45 Discharge Summary Reason For Visit: CELLULITIS OF FACE Current Active Problems Facial cellulitis (Acute) Condition: Improved - Instructions Diet, Activity, Other Instructions: You were admitted for the treatment of cellulitis of the face (Infection) and was treated with IV antibiotics. Please take the antibiotic (Keflex) 500mg 4times a day for 7 days starting at 01/17/17 Please follow up with your primary physician in a week. Return to the Emergency Department if your symptoms get worse or if you develop any new symptoms. REGUALR DIET MAY TAKE SHOWER Referrals: Jassi Burton MD [Primary Care Provider] - 1 Week Disposition: HOME - Home Medications Comprehensive Discharge Medication List: Ambulatory Orders Amlodipine Besylate 5 mg PO DAILY 01/13/17 Apixaban [Eliquis] 5 mg PO BID 01/13/17 Ergocalciferol (Vitamin D2) [Vitamin D2] 2,000 unit PO DAILY 01/13/17 Furosemide [Lasix] 20 mg PO DAILY 01/13/17 Levothyroxine [Synthroid -] 100 mcg PO DAILY 01/13/17 Lisinopril/Hydrochlorothiazide [Lisinopril-Hctz 20-25 mg Tab] 1 each PO DAILY Metoprolol Succinate [Toprol Xl] 50 mg PO DAILY 01/13/17 Cephalexin [Keflex] 500 mg PO QID #28 capsule 01/16/17 Problem List - Problems (1) Facial cellulitis Code(s): L03.211 - CELLULITIS OF FACE This patient is new to me today: No Emergency Visit: Yes ED Registration Date: 01/13/17 Care time: The patient presented to the Emergency Department on the above date and was hospitalized for further evaluation of their emergent condition. Critical Care patient: No - Discharge Referral Referred to [facility] Med P.C.: No
--- NOTE | 2017-01-16 14:34 | PN ---
Teaching Attending Note Name of Resident: Thao Isidro ATTENDING PHYSICIAN STATEMENT I saw and evaluated the patient. I reviewed the resident's note and discussed the case with the resident. I agree with the resident's findings and plan as documented. SUBJECTIVE: no fever or chills, has no pain in face OBJECTIVE: NAD Cv : RRR Lungs: CTAB ext : trace pitting edema on legs Skin : FAce with erythematous, slightly warmer skin , on cheeks , and nose . no LAP ASSESSMENT AND PLAN: 71 y/o lady with multiple medical problems who presented with facial erythema and was found to have cellulitis 1- facial cellulitis vs Eryspilase : improved appreciate ID help, switch to po keflex x 7 days 2- GALLO : resolved . dc IVF 3- Other chronic medical problems , cont home meds Dc home
[2017-01-16 15:03] VITALS: BP 143/95; PULSE 90; TEMP 97.4
[2017-01-18 00:07] LABS: ANTI-DNAse B <78 U/mL (0-120)
== END 2017-01-16 15:58 | disposition home or self-care (01) | DRG 603 ==
LOC: JER 12:40 → JERBED 16:07 → J8W 19:05
PROVIDERS: ADMIT Internal Medicine; ATTEND Internal Medicine
DX: L03.211 Cellulitis of face (principal); N17.9 Acute kidney failure, unspecified; I10 Essential (primary) hypertension; E03.9 Hypothyroidism, unspecified; I48.91 Unspecified atrial fibrillation; E86.0 Dehydration; A46 Erysipelas; Z79.01 Long term (current) use of anticoagulants; Z87.891 Personal history of nicotine dependence; D64.9 Anemia, unspecified
CPT/HCPCS: 36415; 71020-TC; 80048; 80053; 81003; 81015; 83735; 85025; 85027; 85610; 86063; 86215; 87040; 87081; 93005; 93010; 99282-25

== ENCOUNTER 2019-01-14 14:44 | Observation (INO) | payer OTHER | END 2019-01-15 18:58 | disposition home or self-care (01) | LOC: JER 14:44 → JERBED 16:34 → J4W 19:37 ==

== ENCOUNTER 2019-06-16 20:58 | Inpatient (IN) | payer OTHER ==
--- NOTE | 2019-06-16 21:11 | PDOC ---
Rapid Medical Evaluation Time Seen by Provider: 06/16/19 21:08 Medical Evaluation: Allergies Allergy/AdvReac Type Severity Reaction Status Date / Time No Known Allergies Allergy Verified 01/13/17 12:45 06/16/19 21:08 I have performed a brief in-person evaluation of this patient. The patient presents with a chief complaint of:Palpitations x 1 hr. No SOB, CP, diaphoreiss, n/v. H/o afib s/p unsuccessful ablation 5 years ago at [facility], on eliquis and metoprolol, s/p implantation of loop monitor (medtronic). S/p admission for same 01/[address] Maurice of [facility]. Pertinent physical exam findings:tachy to 105 w/ BP 205/108, well samson I have ordered the following:ekg/cxr/labs, taken directly to main ED The patient will proceed to the ED for further evaluation. 06/16/19 21:15 Discharge Disposition - Diagnosis Palpitations - Referrals - Patient Instructions - Post Discharge Activity
[2019-06-16 22:26] LABS: BASO % 0.6 % (0-2.0); EOS % 1.8 % (0-4.5); HEMATOCRIT 37.5 % (32.4-45.2); HEMOGLOBIN 12.2 GM/dL (10.7-15.3); LYMPH % 15.9 % (8-40); MCH 30.2 pg (25.7-33.7); MCHC 32.4 g/dl (32.0-36.0); MEAN CELL VOLUME 93.1 fl (80-96); MEAN PLT VOLUME 9.8 fl (7.5-11.1); NEUT % 73.7 % (42.8-82.8); PLATELET COUNT 206 K/MM3 (134-434); RBC 4.03 M/mm3 (3.60-5.2); RDW 14.3 % (11.6-15.6); WHITE BLOOD COUNT 7.6 K/mm3 (4.0-10.0)
[2019-06-16 22:54] LABS: ALBUMIN 3.5 g/dl (3.4-5.0); BILIRUBIN,TOTAL 0.4 mg/dL (0.2-1); BLOOD UREA NITROGEN 23.8 mg/dL (7-18); CALCIUM 8.8 mg/dL (8.5-10.1); CREATININE 1.2 mg/dL (0.55-1.3)
[2019-06-16] MEDS ORDERED: FUROSEMIDE 20 MG TABLET (FP) PO ONE (22:56)
[2019-06-16] MEDS ORDERED: ASPIRIN 81 MG CHEWABLE TABLETS PO ONE (22:56)
[2019-06-16 22:57] LABS: INR 1.19 (0.83-1.09); PROTHROMBIN TIME (PATIENT) 14.1 SEC (9.7-13.0)
[2019-06-16] MEDS ORDERED: METOPROLOL TARTRATE 50 MG TABLET (FP) PO ONE (23:01)
--- NOTE | 2019-06-16 23:06 | PDOC ---
Documentation entered by Stephenie Shin SCRIBE, acting as scribe for Yanira Pompa MD. Yanira Pompa MD: This documentation has been prepared by the Aleida zuniga Adrianna, SCRIBE, under my direction and personally reviewed by me in its entirety. I confirm that the documentation accurately reflects all work, treatment, procedures, and medical decision making performed by me. History of Present Illness - General Chief Complaint: Palpitations Stated Complaint: FAST HEARTBEAT Time Seen by Provider: 06/16/19 21:08 - History of Present Illness Initial Comments: The patient is a 74 year old female, with a significant PMH of Afib (on eliqui)s , loop recorder (syncopal episode x5 months ago), hypothyroidism, and HTN, who presents to the ED BIBEMS for evaluation of tachycardia and chest palpitations since earlier tonight. Patient notes she was eating dinner, when she had an Afib experience that went into a rapid heart beat. She states her heart rate was 110, and she could feel her heart beating quicker than normal. Patient notes this has happened in the past, but it typically resolves after a few minutes. She states her palpitations are less intense while in the ED. Patient reports a similar episode 5 months ago, where she was seen in [facility] and admitted. Allergies: NKDA Surgical History: Cholecystectomy Social History: Denies EtOH, tobacco, or illicit drug use PCP: JODI Hash Slinger: Dr. Del Castillo/Dr. Maurice Past History - Past Medical History Allergies/Adverse Reactions: Allergies Allergy/AdvReac Type Severity Reaction Status Date / Time No Known Allergies Allergy Verified 01/13/17 12:45 Home Medications: Ambulatory Orders Amlodipine Besylate 5 mg PO DAILY 01/13/17 Apixaban [Eliquis] 5 mg PO BID 01/13/17 Ergocalciferol (Vitamin D2) [Vitamin D2] 2,000 unit PO DAILY 01/13/17 Furosemide [Lasix] 20 mg PO DAILY 01/13/17 Levothyroxine [Synthroid -] 100 mcg PO DAILY 01/13/17 Metoprolol Succinate [Toprol Xl] 50 mg PO BID 01/13/17 Cardiac Disorders: Yes (A.FIB , ABLATION that failed,CAD) COPD: No CHF: No HTN: Yes Thyroid Disease: Yes (HYPO) - Surgical History Cholecystectomy: Yes - Immunization History Immunization Up to Date: No - Psycho Social/Smoking Cessation Hx Smoking History: Never smoked Have you smoked in the past 12 months: No Hx Alcohol Use: No Drug/Substance Use Hx: No Substance Use Type: None Hx Substance Use Treatment: No Review of Systems - Review of Systems Comments:: GENERAL/CONSTITUTIONAL: No fever or chills. No weakness. HEAD, EYES, EARS, NOSE AND THROAT: No change in vision. No ear pain or discharge. No sore throat. CARDIOVASCULAR: +Palpitations. +Rapid heart rate. No chest pain or shortness of breath. RESPIRATORY: No cough, wheezing, or hemoptysis. GASTROINTESTINAL: No nausea, vomiting, diarrhea or constipation. GENITOURINARY: No dysuria, frequency, or change in urination. MUSCULOSKELETAL: No joint or muscle swelling or pain. No neck or back pain. SKIN: No rash NEUROLOGIC: No headache, vertigo, loss of consciousness, or change in strength/ sensation. ENDOCRINE: No increased thirst. No abnormal weight change. HEMATOLOGIC/LYMPHATIC: No anemia, easy bleeding, or history of blood clots. ALLERGIC/IMMUNOLOGIC: No hives or skin allergy. *Physical Exam - Vital Signs Last Vital Signs Temp Pulse Resp BP Pulse Ox 97.9 F 105 H 20 205/108 H 97 06/16/19 21:10 06/16/19 21:10 06/16/19 21:10 06/16/19 21:10 06/16/19 21:10 - Physical Exam Comments: GENERAL: Awake, alert, and fully oriented, in no acute distress. Well nourshed and well developed. HEAD: No signs of trauma. Normocephalic. EYES: PERRLA, EOMI, sclera anicteric, conjunctiva clear ENT: Auricles normal inspection, hearing grossly normal, nares patent, oropharynx clear without exudates. Moist mucosa NECK: Normal ROM, supple, no lymphadenopathy, JVD, or masses LUNGS: Breath sounds equal, clear to auscultation bilaterally. No wheezes, and no crackles, no bruits HEART: +Tachycardic (HR 105). Regular rhythm, normal S1 and S2, no murmurs, rubs or gallops ABDOMEN: +Protuberant belly. Soft, nontender, normoactive bowel sounds. No guarding, no rebound. No masses EXTREMITIES: +Right ankle ecchymosis that travels to [place]. (2/2 hitting ankle on stairs). Normal range of motion, no edema. No clubbing or cyanosis. No cords , erythema, or tenderness NEUROLOGICAL: Cranial nerves II through XII grossly intact. Normal speech, normal gait SKIN: Warm, Dry, normal turgor, no rashes or lesions noted. Heart Score/ECG Review - ECG Intrepretation Comment:: Sinus tachycardia. ST & T wave abnormality, consider inferolateral ischemia. Vent rate 107bpm, PA interval 166ms, QRS duration 92ms, QT/QTc 332/443ms, P-R-T axes * 43 204 ED Treatment Course - LABORATORY CBC & Chemistry Diagram: 06/16/19 21:55 06/16/19 21:55 - ADDITIONAL ORDERS Additional order review: Laboratory Results 06/16/19 06/16/19 06/16/19 23:45 22:30 21:55 PT with INR 14.10 H INR 1.19 H Sodium 141 Potassium 4.0 Chloride 107 Carbon Dioxide 27 Anion Gap 7 L BUN 23.8 H Creatinine 1.2 Est GFR (CKD-EPI)AfAm 51.92 Est GFR (CKD-EPI)NonAf 44.80 Random Glucose 114 H Calcium 8.8 Total Bilirubin 0.4 AST 32 ALT 33 Alkaline Phosphatase 187 H Creatine Kinase Troponin I Total Protein 8.0 Albumin 3.5 Urine Color Yellow Urine Appearance Clear Urine pH 6.0 Ur Specific [place] 1.011 Urine Protein Trace Urine Glucose (UA) Negative Urine Ketones Negative Urine Blood Negative Urine Nitrite Negative Urine Bilirubin Negative Urine Urobilinogen 0.2 Ur Leukocyte Esterase Negative 06/16/19 21:55 PT with INR INR Sodium Potassium Chloride Carbon Dioxide Anion Gap BUN Creatinine Est GFR (CKD-EPI)AfAm Est GFR (CKD-EPI)NonAf Random Glucose Calcium Total Bilirubin AST ALT Alkaline Phosphatase Creatine Kinase 59 Troponin I < 0.02 Total Protein Albumin Urine Color Urine Appearance Urine pH Ur Specific [place] Urine Protein Urine Glucose (UA) Urine Ketones Urine Blood Urine Nitrite Urine Bilirubin Urine Urobilinogen Ur Leukocyte Esterase 06/16/19 21:55 RBC 4.03 MCV 93.1 MCHC 32.4 RDW 14.3 MPV 9.8 D Neutrophils % 73.7 D Lymphocytes % 15.9 D Monocytes % 8.0 Eosinophils % 1.8 Basophils % 0.6 - Medications Given in the ED: ED Medications Discontinued Medications Generic Name Dose Route Start Last Admin Trade Name Karan PRN Reason Stop Dose Admin Aspirin 162 mg 06/16/19 22:56 06/16/19 23:13 Asa - PO 06/16/19 22:57 162 mg ONCE ONE Administration Metoprolol Tartrate 50 mg 06/16/19 23:01 06/16/19 23:13 Lopressor - PO 06/16/19 23:02 50 mg ONCE ONE Administration Medical Decision Making - Medical Decision Making 06/16/19 22:48 74-year-old female with a past medical history of paroxysmal A. fib [id number]= [id number] has undergone normal EP study and ILR implant with normal LV ejection fraction in April 2018, stress test minimal distal LAD ischemia, hypertension, hypothyroidism, hyperlipidemia, diastolic dysfunction without heart failure Status post placement of implantable loop recorder History of radiofrequency ablation History of palpitations Hypothyroidism 06/16/19 23:03 Patient states that she is taking all her medications including her Eliquis 5 mg , metoprolol 50 mg twice daily, Lipitor 40, Norvasc 5mg, Synthroid 100 mcg, Systolic blood pressure has been between 195 and 208 and her heart rate has been about 105 Will admit to OBS telemetry I have spoken with her construction foreman Dr. Adrian Maurice who will consult on this case Plan aspirin, additional metoprolol, Lasix admission 06/17/19 01:10 YR=233/89 pulse=87 Discharge - Discharge Information Problems reviewed: Yes Clinical Impression/Diagnosis: Palpitations, Tachycardia, Hypertension, accelerated, H/O radiofrequency ablation for complex left atrial arrhythmia Hypothyroidism Qualifiers: Hypothyroidism type: unspecified Qualified Code(s): E03.9 - Hypothyroidism, unspecified Ankle injury Qualifiers: Encounter type: initial encounter Laterality: right Qualified Code(s): S99.911A - Unspecified injury of right ankle, initial encounter Condition: Good - Admission Yes - Follow up/Referral - Patient Discharge Instructions - Post Discharge Activity
[2019-06-16] MEDS ORDERED: ASPIRIN 81 MG CHEWABLE TABLETS ONE (23:10)
[2019-06-16] MEDS ORDERED: FUROSEMIDE 40 MG TABLET (FP) ONE (23:11)
[2019-06-16] MEDS ORDERED: FUROSEMIDE 40 MG TABLET (FP) PO ONE (23:16)
[2019-06-16 23:57] LABS: URINE APPEARANCE CLEAR; URINE BILIRUBIN NEGATIVE (NEGATIVE); URINE COLOR YELLOW; URINE GLUCOSE (UA) NEGATIVE (NEGATIVE); URINE KETONE NEGATIVE (NEGATIVE); URINE LEUK ESTERASE NEGATIVE (NEGATIVE); URINE NITRITE NEGATIVE (NEGATIVE); URINE PROTEIN TRACE (NEGATIVE); URINE UROBILINOGEN 0.2 mg/dL (0.2-1.0)
--- NOTE | 2019-06-17 00:08 | PN ---
Teaching Attending Note Name of Resident: Isabella Arcos ATTENDING PHYSICIAN STATEMENT I saw and evaluated the patient. I reviewed the resident's note and discussed the case with the resident. I agree with the resident's findings and plan as documented. SUBJECTIVE: Patient is a 74 year old woman with a PMH of Afib (on eliquis-failed ablations) , Loop recorder (syncopal episode x5 months ago), Hypothyroidism, and HTN, who presents to the ER with tachycardia and chest palpitations since earlier tonight. Patient notes she was eating dinner, when she had an Afib experience that went into a rapid heart beat. She states her heart rate was 110, and she could feel her heart beating quicker than normal. Patient notes this has happened in the past, but it typically resolves after a few minutes. She states her palpitations are less intense while in the ER. Patient reports a similar episode 5 months ago, where she was seen in [facility] and admitted. Denies fever, chills, vomiting, chest pain, SOB, abdominal pain, dysuria, or diarrhea. Deneis tobacco, alcohol or illicit drug use. No recent travels or obvious sick contacts. Has FH of HTN and Colon cancer. OBJECTIVE: Alert Vital Signs Period Temp Pulse Resp BP Sys/Soria Pulse Ox Last 24 Hr 97.9 F 105 20 205/108 97 HEENT: No Jaundice, eye redness or discharge, PERRLA, EOMI. Normocephalic, atraumatic. External ears are normal and hearing is grossly intact. No nasal discharge. Neck: Supple, nontender. No palpable adenopathy or thyromegaly. No JVD Chest: Good effort. Clear to auscultation and percussion. Heart: Tachycardia. No S3, rub or murmur Abdomen: Not distended, soft, nontender and no HSM. No rebound or guarding. Normal bowel sounds. Ext: Peripheral pulses intact. No leg edema. Bruises on right lower leg area. Skin: Warm and dry. No petechiae, rash or ecchymosis. Neuro: Alert. Oriented x3. CN 2-12 grossly intact. Sensation grossly intact in all four extremities and DTR are symmetric. Psych: Appropriate mood and affect. Good insight. Home Medications Medication Instructions Recorded Amlodipine Besylate 5 mg PO DAILY 01/13/17 Apixaban [Eliquis] 5 mg PO BID 01/13/17 Ergocalciferol (Vitamin D2) 2,000 unit PO DAILY 01/13/17 [Vitamin D2] Furosemide [Lasix] 20 mg PO DAILY 01/13/17 Levothyroxine [Synthroid -] 100 mcg PO DAILY 01/13/17 Metoprolol Succinate [Toprol Xl] 50 mg PO BID 01/13/17 Abnormal Lab Results 06/16/19 06/16/19 21:55 22:30 PT with INR 14.10 H INR 1.19 H Anion Gap 7 L BUN 23.8 H Random Glucose 114 H Alkaline Phosphatase 187 H ASSESSMENT AND PLAN: 1. Palpitations - It is possible that her bout of palpitation was caused by Afib. In the ER, her EKG showed sinus tachycardia, T wave inversion in leads 2,3 ,aVL and ST depression in V4-6. Initial troponin was negative. pci security consultant recommended that she get ASA in the ER. CXR shows cardiomegaly, hilar prominence, RLL atelectasis, unfolded aorta and blunted right costophrenic angle. Will continue comprehensive care for all of patients comorbid conditions including Eliquis for Afib. Will closely monitor the bruises on her RLE. Monitor on Telemetry, rule out ACS, get TSH and ECHO. 2. Obesity Counseled on the risks associated with obesity. Will provide patient all the necessary assistance, counseling and positive reinforcement to facilitate weight loss. Consult emergency management program specialist. 3. Hypertensive urgency - She got IV lasix and labetalol in the ER and her BP improved. Will restart her outpatient antihypertensive drugs and also add Lisinopril. Revise regimen to ensure [id number] excellent BP control and family and marriage counsellor patient on the injurious effects of uncontrolled hypertension. Nonpharmacologic measures to control hypertension like weight loss, salt restriction and exercise discussed. Importance of adherence to treatment regimen and attainment of normotension emphasized. 4. DVT prophylaxis - On Eliquis. 5. Advance directives - Full code
[2019-06-17] MEDS ORDERED: LISINOPRIL 20 MG TABLET (FP) PO ONE (03:01)
[2019-06-17] MEDS ORDERED: LABETALOL HCL INJECTION 1,000 MG in SODIUM CHLORIDE 800 ML IV SCH (04:15)
[2019-06-17] MEDS ORDERED: LABETALOL HCL 5 MG/1 ML (100MG/20 ML VIAL) IVPUSH ONE (04:21)
--- NOTE | 2019-06-17 04:54 | CONSULT ---
Consultation: REQUESTING PROVIDER: CONSULT REQUEST: ICU HISTORY OF PRESENT ILLNESS: Michael Cassidy is a 74yF w PMHx of Afib on Eliquis s/p failed ablation, syncope s/p loop recorder, hypothyroidism, presenting with tachycardia and chest palpitations. Symptoms started while eating dinner last night. Patient notes this has happened in the past but normally resolves after a few minutes. She was admitted on 01/15 for paroxysmal a fib w spontaneous reversion to sinus rhythm. Denies fever, chest pain, SOB, nausea/vomiting. In the ED, EKG showed sinus tachycardia, T wave inversion in leads 2,3,aVL and ST depression in V4-6, unchanged from 01/15. Initial troponin was negative. Started ASA and continued home meds per cards. CXR shows cardiomegaly, mild bilateral pleural effusions. Admitted to tele to rule out ACS. 1 hour ago, pt had BP 218/118 despite being given labetalol and lasix, with new onset headache, no vision changes. 1 week ago, tripped on stairs, sprained R ankle. Denies head trauma/LOC. Able to bear weight, been controlling pain w NSAIDs. Family And Consumer Science Professor : Dr Del Castillo/Josafat REVIEW OF SYSTEMS: CONSTITUTIONAL: Absent: fever, chills, diaphoresis HEENT: Absent: rhinorrhea, nasal congestion, visual changes CARDIOVASCULAR: + palpitations,, peripheral edema Absent: chest pain, syncope, lightheadedness RESPIRATORY: Absent: cough, shortness of breath, dyspnea with exertion GASTROINTESTINAL: Absent: abdominal pain, abdominal distension, nausea, vomiting, diarrhea, constipation GENITOURINARY: Absent: dysuria, frequency, urgency, hesitancy MUSCULOSKELETAL: + R ankle pain Absent: myalgia, back pain, neck pain SKIN: Absent: rash, itching, pallor HEMATOLOGIC/IMMUNOLOGIC: Absent: easy bleeding, easy bruising ENDOCRINE: Absent: unexplained weight gain, unexplained weight loss, heat intolerance, cold intolerance NEUROLOGIC: + headache Absent: focal weakness or paresthesias, dizziness, unsteady gait PSYCHIATRIC: Absent: anxiety, depression PHYSICAL EXAMINATION Vital Signs - 24 hr 06/16/19 06/16/19 06/17/19 21:10 23:00 00:30 Temperature 97.9 F Pulse Rate 105 H Pulse Rate [ 105 H 95 H Right] Respiratory 20 19 Rate Blood Pressure 205/108 H Blood Pressure 194/105 H 183/92 H [Left Arm] O2 Sat by Pulse 97 Oximetry (%) 06/17/19 06/17/19 06/17/19 02:12 02:17 02:27 Temperature 98.3 F 97.8 F Pulse Rate Pulse Rate [ 98 H 90 Right] Respiratory 20 14 Rate Blood Pressure Blood Pressure 190/103 H 185/100 H [Left Arm] O2 Sat by Pulse 100 100 Oximetry (%) 06/17/19 06/17/19 03:34 04:46 Temperature 97.8 F Pulse Rate 89 104 H Pulse Rate [ Right] Respiratory 18 Rate Blood Pressure 218/118 H 193/94 H Blood Pressure [Left Arm] O2 Sat by Pulse 99 Oximetry (%) GENERAL: Awake, alert, and fully oriented, in no acute distress. HEAD: Normal with no signs of trauma. EYES: Pupils equal, round and reactive to light, extraocular movements intact, sclera anicteric, conjunctiva clear. EARS, NOSE, THROAT: Moist mucous membranes. NECK: Normal range of motion, supple without lymphadenopathy LUNGS: Breath sounds equal, clear to auscultation bilaterally. No wheezes, and no crackles. No accessory muscle use. HEART: Tachycardic. Regular rhythm, normal S1 and S2 without murmur, rub or gallop. ABDOMEN: Soft, nontender, not distended, normoactive bowel sounds, no guarding, no rebound, no masses. No hepatomegaly or splenomegaly. LOWER EXTREMITIES: R ankle circumferential ecchymosis. No medial/lateral malleolus tenderness. +2 pitting edema to knees bilaterally. Warm. 5/5 strength , full ROM, no sensory deficits NEUROLOGICAL: Cranial nerves II-XII intact. Normal speech. Laboratory Results - last 24 hr 06/16/19 06/16/19 06/16/19 21:55 21:55 21:55 WBC 7.6 RBC 4.03 Hgb 12.2 Hct 37.5 MCV 93.1 MCH 30.2 MCHC 32.4 RDW 14.3 Plt Count 206 MPV 9.8 D Absolute Neuts (auto) 5.6 Neutrophils % 73.7 D Lymphocytes % 15.9 D Monocytes % 8.0 Eosinophils % 1.8 Basophils % 0.6 Nucleated RBC % 0 PT with INR INR Sodium 141 Potassium 4.0 Chloride 107 Carbon Dioxide 27 Anion Gap 7 L BUN 23.8 H Creatinine 1.2 Est GFR (CKD-EPI)AfAm 51.92 Est GFR (CKD-EPI)NonAf 44.80 Random Glucose 114 H Calcium 8.8 Total Bilirubin 0.4 AST 32 ALT 33 Alkaline Phosphatase 187 H Creatine Kinase 59 Troponin I < 0.02 Total Protein 8.0 Albumin 3.5 Urine Color Urine Appearance Urine pH Ur Specific [place] Urine Protein Urine Glucose (UA) Urine Ketones Urine Blood Urine Nitrite Urine Bilirubin Urine Urobilinogen Ur Leukocyte Esterase 06/16/19 06/16/19 22:30 23:45 WBC RBC Hgb Hct MCV MCH MCHC RDW Plt Count MPV Absolute Neuts (auto) Neutrophils % Lymphocytes % Monocytes % Eosinophils % Basophils % Nucleated RBC % PT with INR 14.10 H INR 1.19 H Sodium Potassium Chloride Carbon Dioxide Anion Gap BUN Creatinine Est GFR (CKD-EPI)AfAm Est GFR (CKD-EPI)NonAf Random Glucose Calcium Total Bilirubin AST ALT Alkaline Phosphatase Creatine Kinase Troponin I Total Protein Albumin Urine Color Yellow Urine Appearance Clear Urine pH 6.0 Ur Specific [place] 1.011 Urine Protein Trace Urine Glucose (UA) Negative Urine Ketones Negative Urine Blood Negative Urine Nitrite Negative Urine Bilirubin Negative Urine Urobilinogen 0.2 Ur Leukocyte Esterase Negative Active Medications Generic Name Dose Route Start Last Admin Trade Name Freq PRN Reason Stop Dose Admin Amlodipine Besylate 5 mg 06/17/19 22:00 Norvasc - PO HS GRACE Apixaban 5 mg 06/17/19 10:00 Eliquis - PO BID GRACE Atorvastatin Calcium 40 mg 06/17/19 22:00 Lipitor - PO HS GRACE Chlorhexidine Gluconate 1 applic 06/17/19 22:00 Hibiclens For Decolonization - TP HS GRACE Furosemide 40 mg 06/17/19 10:00 Lasix - PO DAILY GRACE Labetalol HCl 1,000 mg/ Sodium 1,000 mls @ 120 mls/hr 06/17/19 04:15 04:46 Chloride IV 2 mg/min TITR GRACE 120 mls/hr Administration 2 MG/MIN Levothyroxine Sodium 100 mcg 06/17/19 07:00 Synthroid - PO DAILY@0700 GRACE Lisinopril 20 mg 06/18/19 10:00 Prinivil PO DAILY GRACE Metoprolol Tartrate 50 mg 06/17/19 10:00 Lopressor - PO BID GRACE Mupirocin 1 applic 06/17/19 10:00 Bactroban Ointment (For Decolonization) - NS 06/22/19 09:59 BID [facility] ASSESSMENT/PLAN: Michael Cassidy is a 74yF w PMHx of Afib on Eliquis s/p failed ablation, syncope s/p loop recorder, hypothyroidism, presenting with tachycardia and chest palpitations d/t atrial fibrillation vs ACS rule out. Cards - hypertensive urgency, atrial fib w rvr - start labetalol drip, do not drop BP more than 25% in 1 hr - cardiac monitoring - EKG 06/17 showed sinus tachycardia, T wave inversion in leads 2,3,aVL and ST depression in V4-6, unchanged from 01/15 - 1st troponin negative, pending 2nd trop - pending echo - continue home Lipitor, lisinopril, lasix - DVT ppx - appreciate cards recs Pulm - breathing RA w O2sat wnl, no active issues GI - chol/fat/Na diet - I/O Elevated ALP 187 - consider RUQ US for liver visualization - BUN/Cr wnl, normal UA, monitor Endo - hx hypothyroidism - pending TSH, T4 - continue home Synthroid Neuro - headache likely d/t uncontrolled BP - AOx3 - pending head CT r/o intracranial hemorrhage Ortho - s/p R ankle injury - supportive care ID - afebrile, normal WBC, no active infection FEN - no fluids - no electrolyte disturbances - chol/fat/Na diet PPX - eliquis - no GI ppx Dispo - transfer to ICU Visit type - Emergency Visit Emergency Visit: Yes ED Registration Date: 06/17/19 Care time: The patient presented to the Emergency Department on the above date and was hospitalized for further evaluation of their emergent condition. - New Patient This patient is new to me today: Yes Date on this admission: 06/17/19 - Critical Care Critical Care patient: Yes Total Critical Care Time (in minutes): 37 Critical Care Statement: The care of this patient involved high complexity decision making to prevent further life threatening deterioration of the patient 's condition and/or to evaluate & treat vital organ system(s) failure or risk of failure. ATTENDING PHYSICIAN STATEMENT I saw and evaluated the patient. I reviewed the resident's note and discussed the case with the resident. I agree with the resident's findings and plan as documented. SUBJECTIVE: OBJECTIVE: ASSESSMENT AND PLAN:
--- NOTE | 2019-06-17 06:05 | HP ---
CHIEF COMPLAINT: Heart Palpitations PCP: Dr. Del Castillo (cda teacher and PCP), [facility] HISTORY OF PRESENT ILLNESS: Patient is a 74 year old woman with a PMH of Afib (on eliquis-failed ablations) , Loop recorder (syncopal episode x5 months ago, and 1 episode of "near syncope " per pt on Jun 09), Hypothyroidism, diastolic dysfunction, HLD and HTN, who presents to the ER with tachycardia and chest palpitations since earlier tonight. Patient notes she was eating dinner, when she had an Afib experience that went into a rapid heart beat. She states her heart rate was 110, and she could feel her heart beating quicker than normal. Patient notes this has happened in the past, but it typically resolves after a few minutes. She also noted her blood pressure is higher than usual (she measures BP weekly, it is usually ~120s/80s). She states her palpitations are less intense while in the ER. Patient reports a similar episode 5 months ago, where she was seen in [facility] and admitted. Denies fever, chills, vomiting, chest pain, SOB, abdominal pain, dysuria, or diarrhea. Deneis tobacco, alcohol or illicit drug use. No recent travels or obvious sick contacts. Has FH of HTN and Colon cancer. Of note, per the patient's med list she is prescribed Lisinopril 20 daily however the patient reports that she ran out of this medication 1 year ago and her cda teacher told her to just stop taking it. She is also prescribed lasix 20mg daily however she reports she only takes this medication when she is feeling bloated. Also unclear whether patient takes metoprolol tartrate or succinate, uses [facility] pharmacy however computer system was down last night and we were unable to med rec the patient. ER course was notable for: (1) BP 205/ 108 with EKG showing sinus tachycardia and ST depressions in V4, 5, 6 and T wave inversion in leads 2,3,aVL (2) Dr. Maurice called by ED, advised giving patient ASA, metoprolol and lasix ( 162 ASA, 50 metop and 60 lasix admin), pt BP improved to 169/89 (3) troponin negative Recent Travel: denies PAST MEDICAL HISTORY: Afib (on eliquis-failed ablations), Loop recorder ( syncopal episode x5 months ago, and 1 episode of "near syncope" per pt on Jun 09 ), Hypothyroidism, and HTN, PAST SURGICAL HISTORY: cholecystectomy, hysterectomy, radioablation (failed) and loop reader placement Social History: Smokinppd smoker for >20 years, quit 30 years ago Alcohol: socially Drugs: denies Allergies No Known Allergies Allergy (Verified 01/13/17 12:45) HOME MEDICATIONS: Home Medications Medication Instructions Recorded Amlodipine Besylate 5 mg PO DAILY 01/13/17 Apixaban [Eliquis] 5 mg PO BID 01/13/17 Ergocalciferol (Vitamin D2) 2,000 unit PO DAILY 01/13/17 [Vitamin D2] Furosemide [Lasix] 20 mg PO DAILY 01/13/17 Levothyroxine [Synthroid -] 100 mcg PO DAILY 01/13/17 Metoprolol Succinate [Toprol Xl] 50 mg PO BID 01/13/17 Lisinopril 20 mg PO DAILY 06/17/19 REVIEW OF SYSTEMS CONSTITUTIONAL: Absent: fever, chills, diaphoresis, generalized weakness, malaise, loss of appetite, weight change HEENT: Absent: rhinorrhea, nasal congestion, throat pain, throat swelling, difficulty swallowing, mouth swelling, ear pain, eye pain, visual changes CARDIOVASCULAR: palpitations, irregular heart rate, Absent: chest pain, syncope, lightheadedness, peripheral edema RESPIRATORY: Absent: cough, shortness of breath, dyspnea with exertion, orthopnea, wheezing, stridor, hemoptysis GASTROINTESTINAL: Absent: abdominal pain, abdominal distension, nausea, vomiting, diarrhea, constipation, melena, hematochezia GENITOURINARY: Absent: dysuria, frequency, urgency, hesitancy, hematuria, flank pain, genital pain MUSCULOSKELETAL: Pain and redness of RLE Absent: myalgia, arthralgia, joint swelling, back pain, neck pain SKIN: Absent: rash, itching, pallor HEMATOLOGIC/IMMUNOLOGIC: Absent: easy bleeding, easy bruising, lymphadenopathy, frequent infections ENDOCRINE: Absent: unexplained weight gain, unexplained weight loss, heat intolerance, cold intolerance NEUROLOGIC: headache, Absent: focal weakness or paresthesias, dizziness, unsteady gait, seizure, mental status changes, bladder or bowel incontinence PSYCHIATRIC: Absent: anxiety, depression, suicidal or homicidal ideation, hallucinations. PHYSICAL EXAMINATION Vital Signs - 24 hr 10/06/16/19 06/17/19 21:10 23:00 00:30 Temperature 97.9 F Pulse Rate 105 H Pulse Rate [ 105 H 95 H Right] Respiratory 20 19 Rate Blood Pressure 205/108 H Blood Pressure 194/105 H 183/92 H [Left Arm] O2 Sat by Pulse 97 Oximetry (%) 06/17/19 06/17/19 06/17/19 02:12 02:17 02:27 Temperature 98.3 F 97.8 F Pulse Rate Pulse Rate [ 98 H 90 Right] Respiratory 20 14 Rate Blood Pressure Blood Pressure 190/103 H 185/100 H [Left Arm] O2 Sat by Pulse 100 100 Oximetry (%) 06/17/19 06/17/19 03:34 04:46 Temperature 97.8 F Pulse Rate 89 104 H Pulse Rate [ Right] Respiratory 18 Rate Blood Pressure 218/118 H 193/94 H Blood Pressure [Left Arm] O2 Sat by Pulse 99 Oximetry (%) GENERAL: Awake, alert, and fully oriented, in no acute distress. HEAD: Normal with no signs of trauma. EYES: Pupils equal, round and reactive to light, extraocular movements intact, sclera anicteric, conjunctiva clear. No lid lag. EARS, NOSE, THROAT: Ears normal, nares patent, oropharynx clear without exudates. Moist mucous membranes. NECK: Normal range of motion, supple without lymphadenopathy, JVD, or masses. LUNGS: Breath sounds equal, clear to auscultation bilaterally. No wheezes, and no crackles. No accessory muscle use. HEART: Regular rate and rhythm, normal S1 and S2 without murmur. ABDOMEN: Soft, nontender, not distended, normoactive bowel sounds, no guarding, no rebound, no masses. No hepatomegaly or splenomegaly. MUSCULOSKELETAL: Normal range of motion at all joints. No bony deformities or tenderness. No CVA tenderness. UPPER EXTREMITIES: 2+ pulses, warm, well-perfused. No cyanosis. No clubbing. No peripheral edema. 5/5 strength DTR symmetric, sensation intact bilaterally LOWER EXTREMITIES: 2+ pulses, warm, well-perfused. No calf tenderness. 1+ peripheral edema. RLE with redness and pain on palpation. 5/5 strength, DTR symmetric, sensation intact bilaterally NEUROLOGICAL: Cranial nerves II-XII intact. Normal speech. PSYCHIATRIC: Cooperative. Good eye contact. Appropriate mood and affect. SKIN: Warm, dry, normal turgor. RLE with blanching red rash extending from mid dorsum of foot (with straight line of demarcation at mid dorsum) to ~ 5inches above ankle on anterior portion of leg. Bruising noted on the medial ankle and on the lateral portion of leg. Tender to palpation at ankle. Scabbing noted over anterior ankle. Laboratory Results - last 24 hr 06/16/19 06/16/19 06/16/19 21:55 21:55 21:55 WBC 7.6 RBC 4.03 Hgb 12.2 Hct 37.5 MCV 93.1 MCH 30.2 MCHC 32.4 RDW 14.3 Plt Count 206 MPV 9.8 D Absolute Neuts (auto) 5.6 Neutrophils % 73.7 D Lymphocytes % 15.9 D Monocytes % 8.0 Eosinophils % 1.8 Basophils % 0.6 Nucleated RBC % 0 PT with INR INR Sodium 141 Potassium 4.0 Chloride 107 Carbon Dioxide 27 Anion Gap 7 L BUN 23.8 H Creatinine 1.2 Est GFR (CKD-EPI)AfAm 51.92 Est GFR (CKD-EPI)NonAf 44.80 Random Glucose 114 H Calcium 8.8 Total Bilirubin 0.4 AST 32 ALT 33 Alkaline Phosphatase 187 H Creatine Kinase 59 Troponin I < 0.02 Total Protein 8.0 Albumin 3.5 Urine Color Urine Appearance Urine pH Ur Specific [place] Urine Protein Urine Glucose (UA) Urine Ketones Urine Blood Urine Nitrite Urine Bilirubin Urine Urobilinogen Ur Leukocyte Esterase 06/16/19 06/16/19 22:30 23:45 WBC RBC Hgb Hct MCV MCH MCHC RDW Plt Count MPV Absolute Neuts (auto) Neutrophils % Lymphocytes % Monocytes % Eosinophils % Basophils % Nucleated RBC % PT with INR 14.10 H INR 1.19 H Sodium Potassium Chloride Carbon Dioxide Anion Gap BUN Creatinine Est GFR (CKD-EPI)AfAm Est GFR (CKD-EPI)NonAf Random Glucose Calcium Total Bilirubin AST ALT Alkaline Phosphatase Creatine Kinase Troponin I Total Protein Albumin Urine Color Yellow Urine Appearance Clear Urine pH 6.0 Ur Specific [place] 1.011 Urine Protein Trace Urine Glucose (UA) Negative Urine Ketones Negative Urine Blood Negative Urine Nitrite Negative Urine Bilirubin Negative Urine Urobilinogen 0.2 Ur Leukocyte Esterase Negative ASSESSMENT/PLAN: Patient is a 74 year old woman with a PMH of Afib (on eliquis-failed ablations) , Loop recorder (syncopal episode x5 months ago, and 1 episode of "near syncope " per pt on Jun 09), Hypothyroidism, diastolic dysfunction, HLD and HTN, who presents to the ER with tachycardia and chest palpitations since earlier tonight. # Palpitations- Pt due to visit cda teacher and have loop recorder interrogated , possible palpitations are caused by Afib. In the ER, her EKG showed sinus tachycardia, T wave inversion in leads 2,3,aVL and ST depression in V4-6. Initial troponin was negative. websphere consultant recommended that she get ASA in the ED. CXR shows cardiomegaly, hilar prominence, RLL atelectasis, unfolded aorta and blunted right costophrenic angle. - Cardiology consult, Dr. Maurice, appreciate recommendations - TSH, FT4 - Continue home metoprolol, uptitrate bblocker if needed - continue eliquis - monitor on tele - echo # HTN urgencyShe got IV lasix and labetalol in the ER and her BP improved. - resume outpatient antihypertensive drugs - add Lisinopril 20 daily - confirm home meds with [facility] # RLE pain, edema and erythema- Per patient she hit her R leg on a step and it has been bruised, painful and swollen since. 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 She denies cutting her leg but states it was all scrapped up and there was visible scabbing. She is afebrile without a white count. Redness is blanching. - recommend drawing line around area of erythema to see if it is expanding during her stay # FEN monitor lytes, replete PRN cholesterol/ fat/ Na controlled diet # PPx DVT prophylaxis - On Eliquis # Dispo- admit to tele, full code Visit type - Emergency Visit Emergency Visit: Yes ED Registration Date: 06/17/19 Care time: The patient presented to the Emergency Department on the above date and was hospitalized for further evaluation of their emergent condition. - New Patient This patient is new to me today: No - Critical Care Critical Care patient: No ATTENDING PHYSICIAN STATEMENT I saw and evaluated the patient. I reviewed the resident's note and discussed the case with the resident. I agree with the resident's findings and plan as documented. SUBJECTIVE: OBJECTIVE: ASSESSMENT AND PLAN:
[2019-06-17 06:21] LABS: BASO % 1.2 % (0-2.0); EOS % 2.1 % (0-4.5); HEMATOCRIT 35.4 % (32.4-45.2); HEMOGLOBIN 11.8 GM/dL (10.7-15.3); LYMPH % 21.4 % (8-40); MCH 30.7 pg (25.7-33.7); MCHC 33.5 g/dl (32.0-36.0); MEAN CELL VOLUME 91.7 fl (80-96); MEAN PLT VOLUME 9.4 fl (7.5-11.1); MONO % 7.9 % (3.8-10.2); NEUT % 67.4 % (42.8-82.8); PLATELET COUNT 209 K/MM3 (134-434); RBC 3.86 M/mm3 (3.60-5.2); RDW 14.2 % (11.6-15.6); WHITE BLOOD COUNT 8.1 K/mm3 (4.0-10.0)
[2019-06-17] MEDS ORDERED: LEVOTHYROXINE NA 100 MCG TABLET (FP) PO SCH ×2 (07:00)
[2019-06-17 07:22] LABS: ALBUMIN 3.5 g/dl (3.4-5.0); ALK PHOS 188 U/L (45-117); ANION GAP 9 MMOL/L (8-16); BILIRUBIN,TOTAL 0.5 mg/dL (0.2-1); BLOOD UREA NITROGEN 25.2 mg/dL (7-18); CALCIUM 8.8 mg/dL (8.5-10.1); CHLORIDE 105 mmol/L (98-107); CHOLESTEROL 127 mg/dL (50-200); CO2 26 mmol/L (21-32); CREATININE 1.1 mg/dL (0.55-1.3); GLUCOSE,RANDOM 103 mg/dL (74-106); HDL CHOLESTEROL 53 mg/dL (40-60); LDL CHOLESTEROL (ONLY SJRH) 53 mg/dL (5-100); MAGNESIUM 2.1 mg/dL (1.8-2.4); PHOSPHOROUS 3.3 mg/dL (2.5-4.9); POTASSIUM 3.4 mmol/L (3.5-5.1); SGOT/AST 27 U/L (15-37); SGPT/ALT 31 U/L (13-61); SODIUM 140 mmol/L (136-145); TRIGLYCERIDES 106 mg/dL (0-150)
[2019-06-17] MEDS ORDERED: POTASSIUM CHLORIDE TABS 20 MEQ TABLET.ER (FP) PO ONE (09:30)
[2019-06-17] MEDS ORDERED: APIXABAN 5 MG TABLET PO SCH ×2 (10:00)
[2019-06-17] MEDS ORDERED: METOPROLOL TARTRATE 50 MG TABLET (FP) PO SCH ×2 (10:00)
[2019-06-17] MEDS ORDERED: FUROSEMIDE 40 MG TABLET (FP) PO SCH ×2 (10:00)
[2019-06-17] MEDS ORDERED: MUPIROCIN 2% TOPICAL OINTMENT FOR DECOLONIZATION NS SCH (10:00)
[2019-06-17 10:25] LABS: GAMMA GLUTAMYL TRANSPEPTIDASE 324 U/L (5-85)
--- NOTE | 2019-06-17 10:58 | CON.CARD ---
Consult Consult Specialty:: Cardiology Referred by:: Hospitalist Medicine Reason for Consultation:: Recurrent PAF - History of Present Illness Chief Complaint: Palpitations History of Present Illness: 74 yo female h/o PAF [id number] s/p failed RFA at [facility] 2016 with early recurrence with PAF almost daily short episodes, near and true syncope, external loop recorder 3-5 sec pauses, NSVT, sees Dr Cyril Del Castillo at [facility], last [place] [facility] [place] underwent normal EP study and ILR implant with normal LVEF as 05/05/2018, stress test minimal distal LAD ischemia , also h/o HTN, hypothyroidism, mixed hyperlipidemia who presents to the ER for evaluation of palpitations last night without chest pain, near or true syncope, dyspnea, orthopnea, PND or LE edema. She was found to be in recurrent rapid afib now in rate-controlled afib. Last week experienced near syncope with palpitations and activated ILR, confirms medication compliance. Phone call with her patient Dr. Cyril Del Castillo - History Source History Provided By: Patient Limitations to Obtaining History: No Limitations - Past Medical History Cardio/Vascular: Yes: AFIB, HTN ...: No Endocrine: Yes: Hypothyroidism - Alcohol/Substance Use Hx Alcohol Use: No - Smoking History Smoking history: Former smoker Have you smoked in the past 12 months: No If you are a former smoker, when did you quit?: 30 years ago Home Medications - Allergies Allergies/Adverse Reactions: Allergies Allergy/AdvReac Type Severity Reaction Status Date / Time No Known Allergies Allergy Verified 01/13/17 12:45 - Home Medications Home Medications: Ambulatory Orders Amlodipine Besylate 5 mg PO DAILY 01/13/17 Apixaban [Eliquis] 5 mg PO BID 01/13/17 Ergocalciferol (Vitamin D2) [Vitamin D2] 2,000 unit PO DAILY 01/13/17 Furosemide [Lasix] 20 mg PO DAILY 01/13/17 Levothyroxine [Synthroid -] 100 mcg PO DAILY 01/13/17 Metoprolol Succinate [Toprol Xl] 50 mg PO BID 01/13/17 Lisinopril 20 mg PO DAILY 06/17/19 Review of Systems - Review of Systems Cardiovascular: reports: Palpitations Neurological: reports: Dizziness Vital Signs: Vital Signs Temperature 97.9 F 06/17/19 10:00 Pulse Rate 98 H 06/17/19 10:00 Respiratory Rate 16 06/17/19 10:00 Blood Pressure 146/76 06/17/19 10:00 O2 Sat by Pulse Oximetry (%) 97 06/17/19 07:39 Constitutional: Yes: No Distress, Calm Neck: Yes: Supple Respiratory: Yes: Regular, CTA Bilaterally Gastrointestinal: Yes: Soft, Hypoactive Bowel Sounds Cardiovascular: Yes: Pulse Irregular JVD: No Carotid Bruit: No Heart Sounds: Yes: S1, S2 Murmur: Yes: Systolic Murmur, Grade 1 Edema: No - Other Data Labs, Other Data: CBC, BMP 06/17/19 05:54 06/17/19 05:54 INR, PTT INR 1.19 (0.83-1.09) H 06/16/19 22:30 Troponin, BNP 06/16/19 06/17/19 21:55 05:54 Troponin I < 0.02 < 0.02 Troponin, BNP 06/16/19 06/17/19 21:55 05:54 Troponin I < 0.02 < 0.02 Rapid afib @ 107 QTc 443 msec Echo: Report Reviewed Ejection Fraction %: LVEF > or = 40 % Imaging - Results Chest X-ray: Report Reviewed (NAD) Cat Scan: Report Reviewed (HCT: No acute changes) Problem List - Problems (1) H/O radiofrequency ablation for complex left atrial arrhythmia Code(s): Z98.890 - OTHER SPECIFIED POSTPROCEDURAL STATES; Z86.79 - PERSONAL HISTORY OF OTHER DISEASES OF THE CIRCULATORY SYSTEM (2) Hypertension, accelerated Code(s): I10 - ESSENTIAL (PRIMARY) HYPERTENSION (3) Hypothyroidism Code(s): E03.9 - HYPOTHYROIDISM, UNSPECIFIED Qualifiers: Hypothyroidism type: unspecified Qualified Code(s): E03.9 - Hypothyroidism , unspecified (4) Palpitations Code(s): R00.2 - PALPITATIONS (5) Tachycardia Code(s): R00.0 - TACHYCARDIA, UNSPECIFIED (6) GALLO (acute kidney injury) Code(s): N17.9 - ACUTE KIDNEY FAILURE, UNSPECIFIED (7) Diastolic dysfunction without heart failure Code(s): I51.89 - OTHER ILL-DEFINED HEART DISEASES (8) Hypertensive heart disease Code(s): I11.9 - HYPERTENSIVE HEART DISEASE WITHOUT HEART FAILURE Qualifiers: Heart failure presence: without heart failure Qualified Code(s): I11.9 - Hypertensive heart disease without heart failure (9) Paroxysmal atrial fibrillation with RVR Code(s): I48.0 - PAROXYSMAL ATRIAL FIBRILLATION (10) Status post placement of implantable loop recorder Code(s): Z95.818 - PRESENCE OF OTHER CARDIAC IMPLANTS AND GRAFTS Assessment/Plan 06/17/2019 Echo: Normal LV size and fxn, tr-mild MR 05/05/2018 Preserved LV fxn P-Myoview: Mild apical ischemia LVEF 60% 1. Palpitations PAF with RVR 2. Near syncope with normal EP study and s/p [employer] ILR 05/2018 3. Hypothyroidism 4. Diastolic dysfunction 5. GALLO referable to hemodynamic alterations resolving P:1. Change metoprolol to sotalol 80 bid with monitor QTc x 2 days, Eliquis 5 bid, Norvasc 5 qd, Lasix 20 qd, lisinopril 20 qd 2. Interrogate ILR to assess arrhythmia burden 3. F/u with Dr. Cyril Del Castillo of [facility] upon d/c, consideration for repeat ablation as outpatient 4. Thank you for consultative opportunity
--- NOTE | 2019-06-17 11:17 | PN ---
Teaching Attending Note Name of Resident: Aleida Tsang ATTENDING PHYSICIAN STATEMENT I saw and evaluated the patient. I reviewed the resident's note and discussed the case with the resident. I agree with the resident's findings and plan as documented. SUBJECTIVE: Pt seen and examined in the ICU. Blood pressure better controlled. c/o mild frontal headache. No shortness of breath or chest pain. OBJECTIVE: Vital Signs Period Temp Pulse Resp BP Sys/Soria Pulse Ox Last 24 Hr 97.8 F-98.3 F 89-105 14-20 146-218/75-118 97-100 Intake & Output 06/14/19 06/15/19 06/16/19 06/17/19 23:59 23:59 23:59 23:59 Intake Total 240 Balance 240 Weight 103.419 kg 98.685 kg Gen: NAD at rest Heart: RRR Lung: decreased breath sounds at the bases Abd: soft, nontender Ext: + edema, right ankle blanching erythema CBC, BMP 06/17/19 05:54 06/17/19 05:54 Active Medications Amlodipine Besylate (Norvasc -) 5 mg PO HS GRACE Apixaban (Eliquis -) 5 mg PO BID [facility] Last Admin: 06/17/19 09:33 Dose: 5 mg Atorvastatin Calcium (Lipitor -) 40 mg PO HS GRACE Carvedilol (Coreg -) 25 mg PO BID [facility] Chlorhexidine Gluconate (Hibiclens For Decolonization -) 1 applic TP HS [facility] Furosemide (Lasix -) 40 mg PO DAILY [facility] Last Admin: 06/17/19 09:33 Dose: 40 mg Levothyroxine Sodium (Synthroid -) 100 mcg PO DAILY@0700 [facility] Last Admin: 06/17/19 06:16 Dose: 100 mcg Lisinopril (Prinivil) 20 mg PO DAILY [facility] Mupirocin (Bactroban Ointment (For Decolonization) -) 1 applic NS BID [facility] Stop: 06/22/19 09:59 ASSESSMENT AND PLAN: Hypertensive Urgency Atrial Fibrillation LV Diastolic Dysfunction HTN Hyperlipidemia Hypothyroidism - BP control, titrate PO meds - rate control - continue anticoagulation - f/u echocardiogram - O2 to keep SpO2 >90% - local wound care to leg - can monitor on telemetry
--- NOTE | 2019-06-17 11:47 | PN ---
Physical Exam: SUBJECTIVE: Patient seen and examined at bedside. States that she is feeling better now, her headache has dulled. She is still having some intermittent palpitations. She reports no changes in vision. Patient was on labetalol drip overnight but was discontinued before 6am. OBJECTIVE: Vital Signs Period Temp Pulse Resp BP Sys/Soria Pulse Ox Last 24 Hr 97.8 F-98.3 F 89-105 14-20 146-218/75-118 97-100 GENERAL: The patient is awake, alert, and fully oriented, in no acute distress. HEAD: Normal with no signs of trauma. EYES: PERRL, extraocular movements intact, sclera anicteric, conjunctiva clear. No ptosis. ENT: oropharynx clear without exudates, moist mucous membranes. NECK: Trachea midline, full range of motion, supple. LUNGS: Breath sounds equal, clear to auscultation bilaterally, no wheezes, no crackles, no accessory muscle use. HEART: Regular rate and rhythm, S1, S2 without murmur, rub or gallop. ABDOMEN: Soft, nontender, nondistended, normoactive bowel sounds, no guarding, no rebound, no hepatosplenomegaly, no masses. EXTREMITIES: Right ankle with erythema and swelling with tenderness to palpation over the anterior aspect. 2+ pulses, warm, well-perfused, no edema. NEUROLOGICAL: Cranial nerves II through XII grossly intact. Normal speech, sensation grossly intact throughout. 5/5 strength upper and lower extremities. PSYCH: Normal mood, normal affect. Laboratory Results - last 24 hr 06/16/19 06/16/19 06/16/19 21:55 21:55 21:55 WBC 7.6 RBC 4.03 Hgb 12.2 Hct 37.5 MCV 93.1 MCH 30.2 MCHC 32.4 RDW 14.3 Plt Count 206 MPV 9.8 D Absolute Neuts (auto) 5.6 Neutrophils % 73.7 D Lymphocytes % 15.9 D Monocytes % 8.0 Eosinophils % 1.8 Basophils % 0.6 Nucleated RBC % 0 PT with INR INR Sodium 141 Potassium 4.0 Chloride 107 Carbon Dioxide 27 Anion Gap 7 L BUN 23.8 H Creatinine 1.2 Est GFR (CKD-EPI)AfAm 51.92 Est GFR (CKD-EPI)NonAf 44.80 Random Glucose 114 H Calcium 8.8 Phosphorus Magnesium Total Bilirubin 0.4 GGT AST 32 ALT 33 Alkaline Phosphatase 187 H Creatine Kinase 59 Troponin I < 0.02 Total Protein 8.0 Albumin 3.5 Triglycerides Cholesterol Total LDL Cholesterol HDL Cholesterol TSH Urine Color Urine Appearance Urine pH Ur Specific [place] Urine Protein Urine Glucose (UA) Urine Ketones Urine Blood Urine Nitrite Urine Bilirubin Urine Urobilinogen Ur Leukocyte Esterase 06/16/19 06/16/19 06/17/19 22:30 23:45 05:54 WBC 8.1 RBC 3.86 Hgb 11.8 Hct 35.4 MCV 91.7 MCH 30.7 MCHC 33.5 RDW 14.2 Plt Count 209 MPV 9.4 Absolute Neuts (auto) 5.5 Neutrophils % 67.4 Lymphocytes % 21.4 D Monocytes % 7.9 Eosinophils % 2.1 Basophils % 1.2 Nucleated RBC % 0 PT with INR 14.10 H INR 1.19 H Sodium Potassium Chloride Carbon Dioxide Anion Gap BUN Creatinine Est GFR (CKD-EPI)AfAm Est GFR (CKD-EPI)NonAf Random Glucose Calcium Phosphorus Magnesium Total Bilirubin GGT AST ALT Alkaline Phosphatase Creatine Kinase Troponin I Total Protein Albumin Triglycerides Cholesterol Total LDL Cholesterol HDL Cholesterol TSH Urine Color Yellow Urine Appearance Clear Urine pH 6.0 Ur Specific [place] 1.011 Urine Protein Trace Urine Glucose (UA) Negative Urine Ketones Negative Urine Blood Negative Urine Nitrite Negative Urine Bilirubin Negative Urine Urobilinogen 0.2 Ur Leukocyte Esterase Negative 06/17/19 05:54 WBC RBC Hgb Hct MCV MCH MCHC RDW Plt Count MPV Absolute Neuts (auto) Neutrophils % Lymphocytes % Monocytes % Eosinophils % Basophils % Nucleated RBC % PT with INR INR Sodium 140 Potassium 3.4 L Chloride 105 Carbon Dioxide 26 Anion Gap 9 BUN 25.2 H Creatinine 1.1 Est GFR (CKD-EPI)AfAm 57.68 Est GFR (CKD-EPI)NonAf 49.77 Random Glucose 103 Calcium 8.8 Phosphorus 3.3 Magnesium 2.1 Total Bilirubin 0.5 GGT 324 H AST 27 ALT 31 Alkaline Phosphatase 188 H Creatine Kinase Troponin I < 0.02 Total Protein 8.0 Albumin 3.5 Triglycerides 106 Cholesterol 127 Total LDL Cholesterol 53 HDL Cholesterol 53 TSH 2.34 Urine Color Urine Appearance Urine pH Ur Specific [place] Urine Protein Urine Glucose (UA) Urine Ketones Urine Blood Urine Nitrite Urine Bilirubin Urine Urobilinogen Ur Leukocyte Esterase Active Medications Generic Name Dose Route Start Last Admin Trade Name Freq PRN Reason Stop Dose Admin Amlodipine Besylate 5 mg 06/17/19 22:00 Norvasc - PO HS GRACE Apixaban 5 mg 06/17/19 10:00 06/17/19 09:33 Eliquis - PO 5 mg BID [facility] Administration Atorvastatin Calcium 40 mg 06/17/19 22:00 Lipitor - PO HS [facility] Carvedilol 25 mg 06/17/19 11:15 Coreg - PO BID [facility] Chlorhexidine Gluconate 1 applic 06/17/19 22:00 Hibiclens For Decolonization - TP HS [facility] Furosemide 40 mg 06/17/19 10:00 06/17/19 09:33 Lasix - PO 40 mg DAILY [facility] Administration Levothyroxine Sodium 100 mcg 06/17/19 07:00 06/17/19 06:16 Synthroid - PO 100 mcg DAILY@0700 [facility] Administration Lisinopril 20 mg 06/18/19 10:00 Prinivil PO DAILY [facility] Mupirocin 1 applic 06/17/19 10:00 Bactroban Ointment (For Decolonization) - NS 06/22/19 09:59 BID [facility] ASSESSMENT/PLAN: 74 y/o/f with PMHx of Afib on Eliquis s/p failed ablation, syncope s/p loop recorder, hypothyroidism, presenting with tachycardia and chest palpitations d/ t atrial fibrillation vs ACS rule out. Patient was admitted to ICU overnight for hypertensive urgency. #Neuro - headache likely d/t uncontrolled BP - AOx3 - CT negative for acute pathology #Cards - hypertensive urgency, atrial fib w rvr - Labetalol drip discontinued. BP stable - continuous cardiac monitoring - EKG 06/17 showed sinus tachycardia, T wave inversion in leads 2,3,aVL and ST depression in V4-6, unchanged from 01/15 - 1st troponin negative, pending 2nd trop - Echo shows normal ejection fraction and normal left ventricle function. - continue home Lipitor, lisinopril, lasix - DVT ppx - appreciate cards recs - Discontinued Metoprolol. Started Coreg 25mg BID #Pulm - breathing RA w O2sat wnl, no active issues #GI - chol/fat/Na diet - I/O - RUQ U/S shows hepatomegaly with fatty infiltration of the liver. Dilated CBD up to 1.4cm, also seen on previous CT in 2017. # - BUN/Cr wnl, normal UA, monitor #Endo - hx hypothyroidism - Normal TSH, T4 - continue home Synthroid #Ortho - patient tripped and injured her right ankle recently. states she is able to ambulate and her swelling has improved - can consider x-ray to r/o fracture. low suspicion for fracture #ID - afebrile, normal WBC, no active infection #Prophylaxis - eliquis - no GI ppx #FEN - no fluids - Hypokalemic at 3.4, repleted. monitor - chol/fat/Na diet #Dispo - stable for transfer to tele Visit type - Emergency Visit Emergency Visit: Yes ED Registration Date: 06/17/19 Care time: The patient presented to the Emergency Department on the above date and was hospitalized for further evaluation of their emergent condition. - New Patient This patient is new to me today: Yes Date on this admission: 06/18/19 - Critical Care Critical Care patient: Yes Total Critical Care Time (in minutes): 36 Critical Care Statement: The care of this patient involved high complexity decision making to prevent further life threatening deterioration of the patient 's condition and/or to evaluate & treat vital organ system(s) failure or risk of failure. ATTENDING PHYSICIAN STATEMENT I saw and evaluated the patient. I reviewed the resident's note and discussed the case with the resident. I agree with the resident's findings and plan as documented. SUBJECTIVE: OBJECTIVE: ASSESSMENT AND PLAN:
[2019-06-17] MEDS: CARVEDILOL 25 MG TABLET (FP) PO SCH ×2 (12:05→12:15)
[2019-06-17] MEDS ORDERED: PT OWN MED DRAWER 7, Y5N ONE ×2 (12:06→16:13)
--- NOTE | 2019-06-17 12:12 | EKG ---
Test Reason : Blood Pressure : / mmHG Vent. Rate : 107 BPM Atrial Rate : 107 BPM P-R Int : 166 ms QRS Dur : 092 ms QT Int : 332 ms P-R-T Axes : 000 043 204 degrees QTc Int : 443 ms POOR DATA QUALITY, INTERPRETATION MAY BE ADVERSELY AFFECTED SINUS TACHYCARDIA ABNORMAL ECG WHEN COMPARED WITH ECG OF 14-JAN-2019 16:20, SINUS RHYTHM HAS REPLACED ATRIAL FIBRILLATION INVERTED T WAVES HAVE REPLACED NONSPECIFIC T WAVE ABNORMALITY IN LATERAL LEADS Confirmed by LARY WONG MD ([id number]) on 06/17/2019 12:11:47 PM Referred By: Confirmed By:LARY WONG MD
--- NOTE | 2019-06-17 12:20 | CONSULT ---
Consult Consult Specialty:: Nephrology Reason for Consultation:: hypertensive urgency - History of Present Illness Chief Complaint: palpitations History of Present Illness: Pt is a 74 year old female with pmhx of a-fib, htn and hypothyroidism who presents to the ER with palpitations. Hse was found to be hypertensive and tachycardic. She says that she feels better today. I was called to evaluate her for htn. Her bp did improve overnight. She denies fevers or chills. She denies dysuria or hematuria. She is on lasix prn for edema. - History Source History Provided By: Patient, Medical Record - Past Medical History Cardio/Vascular: Yes: AFIB, HTN ...: No Endocrine: Yes: Hypothyroidism - Alcohol/Substance Use Hx Alcohol Use: No - Smoking History Smoking history: Former smoker Have you smoked in the past 12 months: No If you are a former smoker, when did you quit?: 30 years ago Home Medications - Allergies Allergies/Adverse Reactions: Allergies Allergy/AdvReac Type Severity Reaction Status Date / Time No Known Allergies Allergy Verified 01/13/17 12:45 - Home Medications Home Medications: Ambulatory Orders Amlodipine Besylate 5 mg PO DAILY 01/13/17 Apixaban [Eliquis] 5 mg PO BID 01/13/17 Ergocalciferol (Vitamin D2) [Vitamin D2] 2,000 unit PO DAILY 01/13/17 Furosemide [Lasix] 20 mg PO DAILY 01/13/17 Levothyroxine [Synthroid -] 100 mcg PO DAILY 01/13/17 Metoprolol Succinate [Toprol Xl] 50 mg PO BID 01/13/17 Lisinopril 20 mg PO DAILY 06/17/19 Family Medical History Family History: Denies Review of Systems - Review of Systems Constitutional: reports: No Symptoms Eyes: reports: No Symptoms HENT: reports: No Symptoms Neck: reports: No Symptoms Cardiovascular: reports: Edema, Palpitations Respiratory: reports: No Symptoms Gastrointestinal: reports: No Symptoms Genitourinary: reports: No Symptoms Musculoskeletal: reports: No Symptoms Integumentary: reports: No Symptoms Neurological: reports: No Symptoms Endocrine: reports: No Symptoms Hematology/Lymphatic: reports: No Symptoms Psychiatric: reports: No Symptoms Physical Exam Vital Signs: Vital Signs Temperature 97.9 F 06/17/19 10:00 Pulse Rate 82 06/17/19 12:00 Respiratory Rate 19 30/19 12:00 Blood Pressure 138/79 06/17/19 12:00 O2 Sat by Pulse Oximetry (%) 97 06/17/19 07:39 Constitutional: Yes: Calm Eyes: Yes: Conjunctiva Clear HENT: Yes: Atraumatic Cardiovascular: Yes: S1, S2 Respiratory: Yes: CTA Bilaterally Gastrointestinal: Yes: Soft, Abdomen, Obese Musculoskeletal: Yes: WNL Edema: Yes Edema: LLE: Trace, RLE: Trace Neurological: Yes: Oriented Psychiatric: Yes: Oriented Labs: CBC, BMP 06/17/19 05:54 06/17/19 05:54 Selected Entries 06/16/19 06/17/19 06/17/19 21:10 03:34 04:30 Blood Pressure 205/108 H 218/118 H 200/107 H 06/17/19 06/17/19 06/17/19 04:46 05:00 05:30 Blood Pressure 193/94 H 193/94 H 189/95 H 06/17/19 06/17/19 06/17/19 06:00 07:25 08:00 Blood Pressure 160/81 150/95 159/75 06/17/19 06/17/19 06/17/19 09:00 10:00 12:00 Blood Pressure 154/83 146/76 138/79 Laboratory Tests 06/16/19 06/16/19 06/17/19 21:55 21:55 05:54 WBC 7.6 8.1 Hgb 12.2 11.8 Sodium 141 Potassium 4.0 BUN 23.8 H Creatinine 1.2 06/17/19 05:54 WBC Hgb Sodium 140 Potassium 3.4 L BUN 25.2 H Creatinine 1.1 Imaging - Results Chest X-ray: Report Reviewed Problem List - Problems (1) Hypertension, accelerated Code(s): I10 - ESSENTIAL (PRIMARY) HYPERTENSION (2) Tachycardia Code(s): R00.0 - TACHYCARDIA, UNSPECIFIED Assessment/Plan Current Medications Generic Name Dose Route Start Last Admin Trade Name Freq PRN Reason Stop Dose Admin Amlodipine Besylate 5 mg 06/17/19 22:00 Norvasc - PO HS GRACE Apixaban 5 mg 06/17/19 10:00 06/17/19 09:33 Eliquis - PO 5 mg BID [facility] Administration Atorvastatin Calcium 40 mg 06/17/19 22:00 Lipitor - PO HS [facility] Carvedilol 25 mg 06/17/19 11:15 06/17/19 12:15 Coreg - PO Not Given BID [facility] Chlorhexidine Gluconate 1 applic 06/17/19 22:00 Hibiclens For Decolonization - TP HS [facility] Furosemide 40 mg 06/17/19 10:00 06/17/19 09:33 Lasix - PO 40 mg DAILY [facility] Administration Levothyroxine Sodium 100 mcg 06/17/19 07:00 06/17/19 06:16 Synthroid - PO 100 mcg DAILY@0700 [facility] Administration Lisinopril 20 mg 06/18/19 10:00 Prinivil PO DAILY [facility] Mupirocin 1 applic 06/17/19 10:00 06/17/19 12:06 Bactroban Ointment (For Decolonization) - NS 06/22/19 09:59 1 applic BID [facility] Administration Impression 1. HTN 2. palpitations 3. a-fib 4. hypothyroidism 5. 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
--- NOTE | 2019-06-17 12:24 | ECHO ---
Name: SAI WEST Exam:Adult Echocardiogram Study Date: 06/17/2019 08:44 AM Age: 74 yrs Reason For Study: HEART PALPITATIONS Height: 62 in Weight: 224 lb BSA: 2.0 m2 MMode/2D Measurements & Calculations IVSd: 1.1 cm Ao root diam: 2.5 cm LVIDd: 4.4 cm LA dimension: 3.7 cm LVIDs: 3.1 cm LVPWd: 0.86 cm EDV(Teich): 86.6 ml LVOT diam: 2.1 cm ESV(Teich): 37.0 ml Doppler Measurements & Calculations MV E max niles: 72.6 cm/sec Ao V2 max: 115.5 cm/sec MV A max niles: 29.6 cm/sec Ao max P.3 mmHg MV E/A: 2.4 MV dec time: 0.17 sec BERNARDO(V,D): 2.3 cm2 LV V1 max P.5 mmHg LV V1 max: 78.4 cm/sec Procedure A two-dimensional transthoracic echocardiogram with color flow and Doppler was performed. The study w as technically difficult with many images being suboptimal in quality. Left Ventricle The left ventricular size, thickness and function are normal. The left ventricular ejection fraction is normal. The left ventricular wall motion is normal. Right Ventricle The right ventricle is not well visualized. Atria Normal left and right atrial size and function. Mitral Valve The mitral valve is not well visualized. There is no mitral valve stenosis. There is trace to mild mi tral regurgitation. Tricuspid Valve The tricuspid valve is not well visualized. There is no tricuspid stenosis. There was insufficient TR detected to calculate RV systolic pressure. Aortic Valve The aortic valve is not well visualized. No hemodynamically significant valvular aortic stenosis. No aortic regurgitation is present. Pulmonic Valve The pulmonic valve is not well visualized. Great Vessels The aortic root is normal size. Pericardium/Pleura There is no pericardial effusion. Interpretation Summary The left ventricular size, thickness and function are normal The left ventricular ejection fraction is normal. The left ventricular wall motion is normal. The study was technically difficult with many images being suboptimal in quality. There is trace to mild mitral regurgitation. There was insufficient TR detected to calculate RV systolic pressure. MD Jared Mclaughlin 06/17/2019 12:24 PM
[2019-06-17] MEDS: SOTALOL HCL 80 MG TABLET (FP) PO SCH ×2 (16:26→22:07)
[2019-06-17] MEDS ORDERED: CARVEDILOL 25 MG TABLET (FP) PO SCH (18:09)
--- NOTE | 2019-06-17 20:32 | PN ---
Progress Note (short form) - Note Progress Note: HPI: No symptoms at this time. Pt reports being compliant with her medication and having strict adherance to her salt diet. Pt currently denies headache, blurry vision, shortness of breath, palpitations, chest pain, lower extremity edema on the reg, abdominal pain, dysuria, polyuria. PE: Gen: NAD, awake, oriented x3 HEENT: Nc/AT, EOMI, [place], sclera anicteric, MMM LUNG: CTA b/l no wheezes or rales. On RA CARD: Irregularly irregular no murmurs ABD: Soft, NT/ND, normoactive BS EXT: no edema CBC, BMP 06/17/19 05:54 06/17/19 05:54 Active Medications Amlodipine Besylate (Norvasc -) 5 mg PO HS [facility]ACE Apixaban (Eliquis -) 5 mg PO BID [facility] Atorvastatin Calcium (Lipitor -) 40 mg PO HS [facility] Carvedilol (Coreg -) 25 mg PO BID [facility] Furosemide (Lasix -) 20 mg PO DAILY [facility] Levothyroxine Sodium (Synthroid -) 100 mcg PO DAILY@0700 [facility] Lisinopril (Prinivil) 20 mg PO DAILY [facility] Sotalol HCl (Betapace -) 80 mg PO BID [facility] Last Admin: 06/17/19 16:26 Dose: 80 mg Assessment and Plan: Hypertensive Emergency Permanent Atrial fibrillation Diastolic CHF not inexacerbation Hypothyroidism HTN HLD --Pt's HTN emergency resolved at this time --Pt on home medications: Norvasc 5mg HS Lisinopril 20mg qdaily --Pending echocardiogram --Appreciate all consultation recommendations --If pt has normal LVEF, start Sotalol for possible rhythm converstion --Continue Synthroid 100mcg qdaily --Continue Eliquis 5mg BID PO FEN: Fluids: Encourage PO Electrolyte abnormalities: Hypokalemia; repleted Nutrition: Salt-restricted PPX: DVT - Already on Eliquis Dispo: Can transfer to telemetry Case discussed with Dr. Tha Conde, DO - IM PGY-3 <Grayson Conde - Last Filed: 06/17/19 20:32> - Note Progress Note: Seen and examined; verified all resident exam findings as documented unless supplemented by myself. Overall the patient is afebrile and hemodynamically stable. Considering rhythm control with sotalol; monitor QTc QD if this is case and defer overall management to CV. Continue eliquis and resumed home antihypertensives. Appreciate expert consult management. NC AT EOMI PERRLA HR irregular, slight tachy, s1/2 Lungs CTAB, w/ sym exp No JVD with ml trachea NT ND +BS CN2-12 wnl, no fnd Normal mood, appropriate behavior Agree with resident problem list; in addition please refer to H and P for this 24 hour billing period. No drastic changes [place] to medications or overall management. <Cesario Almazan - Last Filed: 06/18/19 13:07>
[2019-06-17] MEDS ORDERED: amLODIPine BESYLATE 5 MG TABLET (FP) PO SCH ×2 (22:00)
[2019-06-17] MEDS ORDERED: ATORVASTATIN CA 40 MG TABLET (FP) PO SCH ×2 (22:00)
[2019-06-17] MEDS ORDERED: CHLORHEXIDINE GLUCONATE 4% CLEANSER FOR DECOLONIZATION TP SCH (22:00)
[2019-06-17] MEDS: ATORVASTATIN CA 40 MG TABLET (FP) PO SCH (22:07)
[2019-06-17] MEDS: APIXABAN 5 MG TABLET PO SCH (22:07)
[2019-06-17] MEDS: amLODIPine BESYLATE 5 MG TABLET (FP) PO SCH (22:07)
[2019-06-18] MEDS: LEVOTHYROXINE NA 100 MCG TABLET (FP) PO SCH (06:09)
[2019-06-18 06:56] LABS: HEMOGLOBIN 12.4 GM/dL (10.7-15.3); MCH 30.7 pg (25.7-33.7); MCHC 33.4 g/dl (32.0-36.0); MEAN CELL VOLUME 91.9 fl (80-96); MEAN PLT VOLUME 9.7 fl (7.5-11.1); PLATELET COUNT 221 K/MM3 (134-434); RBC 4.03 M/mm3 (3.60-5.2); RDW 14.3 % (11.6-15.6); WHITE BLOOD COUNT 7.3 K/mm3 (4.0-10.0)
[2019-06-18 07:33] LABS: ALBUMIN 3.4 g/dl (3.4-5.0); BILIRUBIN,TOTAL 0.8 mg/dL (0.2-1); BLOOD UREA NITROGEN 19.6 mg/dL (7-18); CALCIUM 9.1 mg/dL (8.5-10.1); MAGNESIUM 2.3 mg/dL (1.8-2.4); PHOSPHOROUS 3.4 mg/dL (2.5-4.9); POTASSIUM 3.7 mmol/L (3.5-5.1); TOT PROT 7.9 g/dl (6.4-8.2)
--- NOTE | 2019-06-18 08:56 | PN ---
Progress Note, Physician History of Present Illness: Reduced palpitations and feels weak while in rate-controlled afib now on sotalol. - Current Medication List Current Medications: Active Medications Amlodipine Besylate (Norvasc -) 5 mg PO [facility] Last Admin: 06/17/19 22:07 Dose: 5 mg Apixaban (Eliquis -) 5 mg PO BID [facility] Last Admin: 06/17/19 22:07 Dose: 5 mg Atorvastatin Calcium (Lipitor -) 40 mg PO HS [facility] Last Admin: 06/17/19 22:07 Dose: 40 mg Furosemide (Lasix -) 20 mg PO DAILY [facility] Levothyroxine Sodium (Synthroid -) 100 mcg PO DAILY@0700 [facility] Last Admin: 06/18/19 06:09 Dose: 100 mcg Lisinopril (Prinivil) 20 mg PO DAILY [facility] Sotalol HCl (Betapace -) 80 mg PO BID [facility] Last Admin: 06/17/19 22:07 Dose: 80 mg - Objective Vital Signs: Vital Signs Temperature 97.8 F 06/17/19 14:00 Pulse Rate 71 06/18/19 02:00 Respiratory Rate 16 06/18/19 02:00 Blood Pressure 115/63 06/18/19 02:00 O2 Sat by Pulse Oximetry (%) 97 06/17/19 21:00 Constitutional: Yes: No Distress, Calm Neck: Yes: Supple Cardiovascular: Yes: Pulse Irregular Respiratory: Yes: Regular, CTA Bilaterally Gastrointestinal: Yes: Soft, Hypoactive Bowel Sounds Edema: No Labs: CBC, BMP 06/18/19 06:10 06/18/19 06:10 INR, PTT INR 1.19 (0.83-1.09) H 06/16/19 22:30 - ....Imaging Ultrasound: Report Reviewed (s/p cholecystectomy, chronic dilated CBD) EKG: Report Reviewed (Tele: Rate-controlled afib ECG: Afib @ 71 LVH QTc 471 msec ) Problem List - Problems (1) H/O radiofrequency ablation for complex left atrial arrhythmia Code(s): Z98.890 - OTHER SPECIFIED POSTPROCEDURAL STATES; Z86.79 - PERSONAL HISTORY OF OTHER DISEASES OF THE CIRCULATORY SYSTEM (2) Hypertension, accelerated Code(s): I10 - ESSENTIAL (PRIMARY) HYPERTENSION (3) Hypothyroidism Code(s): E03.9 - HYPOTHYROIDISM, UNSPECIFIED Qualifiers: Hypothyroidism type: unspecified Qualified Code(s): E03.9 - Hypothyroidism , unspecified (4) Palpitations Code(s): R00.2 - PALPITATIONS (5) Tachycardia Code(s): R00.0 - TACHYCARDIA, UNSPECIFIED (6) GALLO (acute kidney injury) Code(s): N17.9 - ACUTE KIDNEY FAILURE, UNSPECIFIED (7) Diastolic dysfunction without heart failure Code(s): I51.89 - OTHER ILL-DEFINED HEART DISEASES (8) Hypertensive heart disease Code(s): I11.9 - HYPERTENSIVE HEART DISEASE WITHOUT HEART FAILURE Qualifiers: Heart failure presence: without heart failure Qualified Code(s): I11.9 - Hypertensive heart disease without heart failure (9) Paroxysmal atrial fibrillation with RVR Code(s): I48.0 - PAROXYSMAL ATRIAL FIBRILLATION (10) Status post placement of implantable loop recorder Code(s): Z95.818 - PRESENCE OF OTHER CARDIAC IMPLANTS AND GRAFTS Assessment/Plan 06/17/2019 Echo: Normal LV size and fxn, tr-mild MR 05/05/2018 Preserved LV fxn P-Myoview: Mild apical ischemia LVEF 60% 1. Palpitations PAF with RVR with h/o RFA @ [facility] 2. Near syncope with normal EP study and s/p [employer] ILR 05/2018 3. Hypothyroidism 4. Diastolic dysfunction 5. GALLO referable to hemodynamic alterations resolving P:1. Continue sotalol 80 bid with monitor QTc x 2 days, Eliquis 5 bid, Norvasc 5 qd, Lasix 20 qd, lisinopril 20 qd, Lipitor 40 qd 2. Interrogate ILR to assess arrhythmia burden 3. Plan for DCCV in AM on sotalol, Eliquis compliance confirmed with patient hence [place] guidance is not indicated 4. F/u with Dr. Cyril Del Castillo of [facility] upon d/c, consideration for repeat ablation as outpatient
[2019-06-18] MEDS ORDERED: LISINOPRIL 20 MG TABLET (FP) PO SCH ×2 (10:00)
[2019-06-18] MEDS ORDERED: PT OWN MED DRAWER 7, Y5N ONE (10:04)
--- NOTE | 2019-06-18 10:18 | PN ---
Progress Note (short form) - Note Progress Note: HPI: Only event is patient feeling weak in bed at some point. No chest pain or shortness of breath at this time. No acute variation in telemetry events. Pt reports being strictly adherant to Eliquis BID for the past 5 months. PE: Gen: NAD, awake, oriented x3 HEENT: Nc/AT, EOMI, [place], sclera anicteric, MMM LUNG: CTA b/l no wheezes or rales. On RA CARD: Irregularly irregular no murmurs ABD: Soft, NT/ND, normoactive BS EXT: no edema CBC, BMP 06/17/19 05:54 06/17/19 05:54 Active Medications Amlodipine Besylate (Norvasc -) 5 mg PO HS [facility] Apixaban (Eliquis -) 5 mg PO BID [facility] Atorvastatin Calcium (Lipitor -) 40 mg PO HS [facility] Carvedilol (Coreg -) 25 mg PO BID [facility] Furosemide (Lasix -) 20 mg PO DAILY [facility] Levothyroxine Sodium (Synthroid -) 100 mcg PO DAILY@0700 [facility] Lisinopril (Prinivil) 20 mg PO DAILY [facility] Sotalol HCl (Betapace -) 80 mg PO BID [facility] Last Admin: 06/17/19 16:26 Dose: 80 mg ECG this AM without any QTc prolongment Assessment and Plan: Hypertensive Emergency Permanent Atrial fibrillation Diastolic CHF not inexacerbation Hypothyroidism HTN HLD --Pt's HTN emergency resolved at this time --Pt on home medications: Norvasc 5mg HS Lisinopril 20mg qdaily --Echo reviewed --Appreciate all consultation recommendations --If pt has normal LVEF, start Sotalol for possible rhythm converstion --Continue Synthroid 100mcg qdaily --Continue Eliquis 5mg BID PO --Continue on Sotalol 80mg BID PO for possible cardioversion --Will need repeat ECG AM to assess QTc interval --Possible cardioversion tomorrow FEN: Fluids: Encourage PO Electrolyte abnormalities: Hypokalemia; repleted Nutrition: Salt-restricted PPX: DVT - Already on Eliquis Dispo: Monitor telemetry Case discussed with Dr. Tha Conde, DO - IM PGY-3 <Grayson Conde - Last Filed: 06/18/19 10:13> - Note Progress Note: Seen and examined; independently verified all historical and physical examination findings. Reviewed all diagnostics, imaging, and vitals. Discussed at length with resident team and indicated consultants. They remain stable. No new complaints; on sotalol no issues with QTc. Monitoring in the ICU with resident team. Discussed with subspecialty consulting services. 10 sys ROS done and negative aside from HPI NC AT EOMI PERRLA HR irregular and slightly slow, s1/2 Lungs CTAB, w/ sym exp No JVD with ml trachea NT ND +BS CN2-12 wnl, no fnd Normal mood, appropriate behavior Telemetry reviewed; monitor on floor A/P: Presents for rhythm control w/ sotalol and plan DCCV if innefective. Hypertensive Emergency Permanent Atrial fibrillation Diastolic CHF not inexacerbation Hypothyroidism HTN HLD Full Code <Cesario Almazan - Last Filed: 06/19/19 16:19>
[2019-06-18] MEDS: FUROSEMIDE 20 MG TABLET (FP) PO SCH (10:59)
[2019-06-18] MEDS: SOTALOL HCL 80 MG TABLET (FP) PO SCH ×2 (10:59→21:21)
[2019-06-18] MEDS: LISINOPRIL 20 MG TABLET (FP) PO SCH (11:00)
[2019-06-18] MEDS: APIXABAN 5 MG TABLET PO SCH ×2 (11:00→21:21)
--- NOTE | 2019-06-18 11:02 | PN ---
Progress Note, Physician History of Present Illness: Pt seen and examined at bedside. She is awake and alert. She denies palpitations. - Current Medication List Current Medications: Active Medications Amlodipine Besylate (Norvasc -) 5 mg PO HS [facility] Last Admin: 06/17/19 22:07 Dose: 5 mg Apixaban (Eliquis -) 5 mg PO BID [facility] Last Admin: 06/17/19 22:07 Dose: 5 mg Atorvastatin Calcium (Lipitor -) 40 mg PO HS [facility] Last Admin: 06/17/19 22:07 Dose: 40 mg Furosemide (Lasix -) 20 mg PO DAILY [facility] Levothyroxine Sodium (Synthroid -) 100 mcg PO DAILY@0700 [facility] Last Admin: 06/18/19 06:09 Dose: 100 mcg Lisinopril (Prinivil) 20 mg PO DAILY [facility] Sotalol HCl (Betapace -) 80 mg PO BID [facility] Last Admin: 06/17/19 22:07 Dose: 80 mg - Objective Vital Signs: Vital Signs Temperature 97.6 F 06/18/19 06:00 Pulse Rate 75 06/18/19 06:00 Respiratory Rate 17 06/18/19 06:00 Blood Pressure 177/78 H 06/18/19 06:00 O2 Sat by Pulse Oximetry (%) 97 06/17/19 21:00 Constitutional: Yes: Calm Eyes: Yes: Conjunctiva Clear HENT: Yes: Atraumatic Neck: Yes: Supple Cardiovascular: Yes: S1, S2 Respiratory: Yes: CTA Bilaterally Gastrointestinal: Yes: Normal Bowel Sounds, Soft Genitourinary: Yes: WNL Musculoskeletal: Yes: WNL Edema: Yes Edema: LLE: Trace, RLE: Trace Integumentary: Yes: WNL Neurological: Yes: Oriented Psychiatric: Yes: Oriented Labs: CBC, BMP 06/18/19 06:10 06/18/19 06:10 INR, PTT INR 1.19 (0.83-1.09) H 06/16/19 22:30 Problem List - Problems (1) Hypertension, accelerated Code(s): I10 - ESSENTIAL (PRIMARY) HYPERTENSION (2) Tachycardia Code(s): R00.0 - TACHYCARDIA, UNSPECIFIED Assessment/Plan Current Medications Generic Name Dose Route Start Last Admin Trade Name Freq PRN Reason Stop Dose Admin Amlodipine Besylate 5 mg 06/17/19 22:00 06/17/19 22:07 Norvasc - PO 5 mg HS [facility] Administration Apixaban 5 mg 06/17/19 22:00 06/18/19 11:00 Eliquis - PO 5 mg BID [facility] Administration Atorvastatin Calcium 40 mg 06/17/19 22:00 06/17/19 22:07 Lipitor - PO 40 mg HS [facility] Administration Furosemide 20 mg 06/18/19 10:00 06/18/19 10:59 Lasix - PO 20 mg DAILY [facility] Administration Levothyroxine Sodium 100 mcg 06/18/19 07:00 06/18/19 06:09 Synthroid - PO 100 mcg DAILY@0700 [facility] Administration Lisinopril 20 mg 06/18/19 10:00 06/18/19 11:00 Prinivil PO 20 mg DAILY [facility] Administration Sotalol HCl 80 mg 06/17/19 13:00 06/18/19 10:59 Betapace - PO 80 mg BID [facility] Administration Impression 1. HTN 2. palpitations 3. a-fib 4. hypothyroidism 5. hld Plan - monitor bp after am meds - cardio input appreciatd - renal function stable - ua ne for protein - can follow as outpt as needed
--- NOTE | 2019-06-18 12:03 | EKG ---
Test Reason : Blood Pressure : / mmHG Vent. Rate : 071 BPM Atrial Rate : 214 BPM P-R Int : 000 ms QRS Dur : 096 ms QT Int : 412 ms P-R-T Axes : 000 024 179 degrees QTc Int : 447 ms ATRIAL FIBRILLATION MINIMAL VOLTAGE CRITERIA FOR LVH, MAY BE NORMAL VARIANT ABNORMAL ECG Confirmed by NAYAN CHAUDHARI MD ([id number]) on 06/18/2019 12:03:40 PM Referred By: [facility] Confirmed By:NAYAN CHAUDHARI MD
--- NOTE | 2019-06-18 12:14 | PN ---
Progress Note (short form) - Note Progress Note: PULMONARY Denies shortness of breath. BP and HR improving. Vital Signs Period Temp Pulse Resp BP Sys/Soria Pulse Ox Last 24 Hr 97.6 F-97.8 F 62-88 16-22 115-177/63-101 97 Intake & Output 06/15/19 06/16/19 06/17/19 06/18/19 23:59 23:59 23:59 23:59 Intake Total 440 Balance 440 Weight 103.419 kg 98.685 kg Gen: NAD at rest Heart: RRR Lung: decreased breath sounds at the bases Abd: soft, nontender Ext: + edema CBC, BMP 06/18/19 06:10 06/18/19 06:10 Active Medications Amlodipine Besylate (Norvasc -) 5 mg PO HS [facility] Last Admin: 06/17/19 22:07 Dose: 5 mg Apixaban (Eliquis -) 5 mg PO BID [facility] Last Admin: 06/18/19 11:00 Dose: 5 mg Atorvastatin Calcium (Lipitor -) 40 mg PO HS [facility] Last Admin: 06/17/19 22:07 Dose: 40 mg Furosemide (Lasix -) 20 mg PO DAILY [facility] Last Admin: 06/18/19 10:59 Dose: 20 mg Levothyroxine Sodium (Synthroid -) 100 mcg PO DAILY@0700 [facility] Last Admin: 06/18/19 06:09 Dose: 100 mcg Lisinopril (Prinivil) 20 mg PO DAILY [facility] Last Admin: 06/18/19 11:00 Dose: 20 mg Sotalol HCl (Betapace -) 80 mg PO BID [facility] Last Admin: 06/18/19 10:59 Dose: 80 mg A/P Hypertensive Urgency improving Atrial Fibrillation LV Diastolic Dysfunction HTN Hyperlipidemia Hypothyroidism - BP control - rate/rhythm control - monitor QTc - continue anticoagulation - for DCCV - O2 to keep SpO2 >90% - local wound care to leg - telemetry monitoring
[2019-06-18] MEDS: amLODIPine BESYLATE 5 MG TABLET (FP) PO SCH (21:21)
[2019-06-18] MEDS: ATORVASTATIN CA 40 MG TABLET (FP) PO SCH (21:21)
[2019-06-19 06:24] LABS: HEMATOCRIT 35.3 % (32.4-45.2); HEMOGLOBIN 11.8 GM/dL (10.7-15.3); MCH 30.9 pg (25.7-33.7); MCHC 33.4 g/dl (32.0-36.0); MEAN CELL VOLUME 92.4 fl (80-96); MEAN PLT VOLUME 9.3 fl (7.5-11.1); PLATELET COUNT 213 K/MM3 (134-434); RBC 3.82 M/mm3 (3.60-5.2); RDW 14.3 % (11.6-15.6); WHITE BLOOD COUNT 7.9 K/mm3 (4.0-10.0)
[2019-06-19] MEDS: LEVOTHYROXINE NA 100 MCG TABLET (FP) PO SCH (06:43)
[2019-06-19 06:50] LABS: BLOOD UREA NITROGEN 29.1 mg/dL (7-18); CREATININE 1.2 mg/dL (0.55-1.3); POTASSIUM 3.8 mmol/L (3.5-5.1)
[2019-06-19 06:56] LABS: INR 1.68 (0.83-1.09); PROTHROMBIN TIME (PATIENT) 19.9 SEC (9.7-13.0)
--- NOTE | 2019-06-19 07:06 | PN ---
Addendum entered and electronically signed by Grayson Conde, RESIDENT 06/19/19 11:44: QTc 487ms Original Note: Progress Note (short form) - Note Progress Note: HPI: Pt without any acute events overnight. No episodes of lightheadedness, weakness or dizziness. Pt on overhead monitor in sinus bradycardia at 58bpm, however after walking to room from monitoring station pt was back in atrial fibrillation. Vital Signs Temperature 97.9 F 06/19/19 10:32 Pulse Rate 51 L 06/19/19 10:32 Respiratory Rate 06/19/19 10:32 Blood Pressure 154/60 06/19/19 10:32 O2 Sat by Pulse Oximetry (%) 97 06/19/19 09:00 PE: Gen: NAD, awake, oriented x3 HEENT: Nc/AT, EOMI, [place], sclera anicteric, MMM LUNG: CTA b/l no wheezes or rales. On RA CARD: Irregularly irregular no murmurs ABD: Soft, NT/ND, normoactive BS EXT: no edema CBC, BMP 06/19/19 05:28 06/19/19 05:28 Active Medications Amlodipine Besylate (Norvasc -) 5 mg PO HS [facility] Apixaban (Eliquis -) 5 mg PO BID [facility] Atorvastatin Calcium (Lipitor -) 40 mg PO HS [facility] Carvedilol (Coreg -) 25 mg PO BID [facility] Furosemide (Lasix -) 20 mg PO DAILY [facility] Levothyroxine Sodium (Synthroid -) 100 mcg PO DAILY@0700 [facility] Lisinopril (Prinivil) 20 mg PO DAILY [facility] Sotalol HCl (Betapace -) 80 mg PO BID [facility] Last Admin: 06/17/19 16:26 Dose: 80 mg ECG this AM pending Assessment and Plan: Hypertensive Emergency (resolved) Paroxysmal Atrial fibrillation Diastolic CHF not inexacerbation Hypothyroidism HTN HLD --Pt loop recorder interrogated with 4 second pauses, however likely compensatory conversion from sinus to afib and vice versa --Pt asymptomatic at time of pauses --Continue Sotalol 80mg BID PO today --EKG in AM for assessment of Qtc: 487ms today --Pt's HTN emergency resolved at this time --Pt on home medications: Norvasc 5mg HS Lisinopril 20mg qdaily --Echo reviewed --Appreciate all consultation recommendations --possible cardioversion per cardiology --Continue Synthroid 100mcg qdaily --Continue Eliquis 5mg BID PO FEN: Fluids: Encourage PO Electrolyte abnormalities: Hypokalemia; repleted Nutrition: NPO for cardioversion today PPX: DVT - Already on Eliquis Dispo: Monitor telemetry Case discussed with Dr. Tha Conde, DO - IM PGY-3 <Grayson Conde - Last Filed: 06/19/19 11:43> - Note Progress Note: Seen and examined; independently verified all historical and physical examination findings. Reviewed all diagnostics, imaging, and vitals. Discussed at length with resident team and indicated consultants. They remain stable. No new complaints; on sotalol no issues with QTc. Monitoring in the ICU with resident team. Discussed with subspecialty consulting services. No need for DCCV as converted. Discussed with CV. If there was need for DCCV she wouldn't need [place] prior due to compliance with AC 10 sys ROS done and negative aside from HPI NC AT EOMI PERRLA HR irregular and slightly slow, s1/2 Lungs CTAB, w/ sym exp No JVD with ml trachea NT ND +BS CN2-12 wnl, no fnd Normal mood, appropriate behavior Telemetry reviewed; monitor on ICU/tele stepdown A/P: Presents for rhythm control w/ sotalol; continue current plan, ensure QTc <500 Hypertensive Emergency, resolved. Permanent Atrial fibrillation on AC, converting Diastolic CHF not inexacerbation Hypothyroidism continue LT4 HTN HLD Full Code Continue to monitor on medicine service with indicated subspecialty consultants. If remains improved and hemodynamics stable without issues on telemetry we will likely be able to DC within 24 hours. <Cesario Almazan - Last Filed: 06/19/19 16:22>
[2019-06-19] MEDS: SOTALOL HCL 80 MG TABLET (FP) PO SCH ×2 (09:48→21:34)
[2019-06-19] MEDS: FUROSEMIDE 20 MG TABLET (FP) PO SCH (09:49)
[2019-06-19] MEDS: LISINOPRIL 20 MG TABLET (FP) PO SCH (09:49)
[2019-06-19] MEDS: APIXABAN 5 MG TABLET PO SCH ×2 (09:49→21:34)
--- NOTE | 2019-06-19 11:14 | PN ---
Progress Note, Physician History of Present Illness: Palpitations and weakness improved as she spontaneously converted to sinus bradycardia on sotalol. - Current Medication List Current Medications: Active Medications Amlodipine Besylate (Norvasc -) 5 mg PO [facility] Last Admin: 06/18/19 21:21 Dose: 5 mg Apixaban (Eliquis -) 5 mg PO BID [facility] Last Admin: 06/19/19 09:49 Dose: 5 mg Atorvastatin Calcium (Lipitor -) 40 mg PO HS [facility] Last Admin: 06/18/19 21:21 Dose: 40 mg Furosemide (Lasix -) 20 mg PO DAILY [facility] Last Admin: 06/19/19 09:49 Dose: 20 mg Levothyroxine Sodium (Synthroid -) 100 mcg PO DAILY@0700 [facility] Last Admin: 06/19/19 06:43 Dose: 100 mcg Lisinopril (Prinivil) 20 mg PO DAILY [facility] Last Admin: 06/19/19 09:49 Dose: 20 mg Sotalol HCl (Betapace -) 80 mg PO BID [facility] Last Admin: 06/19/19 09:48 Dose: Not Given - Objective Vital Signs: Vital Signs Temperature 97.9 F 06/19/19 10:32 Pulse Rate 51 L 06/19/19 10:32 Respiratory Rate 19 06/19/19 10:32 Blood Pressure 154/60 06/19/19 10:32 O2 Sat by Pulse Oximetry (%) 97 06/19/19 09:00 Constitutional: Yes: No Distress, Calm Neck: Yes: Supple Cardiovascular: Yes: Regular Rate and Rhythm, Bradycardia Respiratory: Yes: Regular, CTA Bilaterally Gastrointestinal: Yes: Normal Bowel Sounds, Soft Edema: No Labs: CBC, BMP 06/19/19 05:28 06/19/19 05:28 INR, PTT INR 1.68 (0.83-1.09) H 06/19/19 05:28 - ....Imaging EKG: Report Reviewed (SB @ 54 LVH with repol abnl QTc 487 msec Tele: PAF->SR, no TdP) Problem List - Problems (1) H/O radiofrequency ablation for complex left atrial arrhythmia Code(s): Z98.890 - OTHER SPECIFIED POSTPROCEDURAL STATES; Z86.79 - PERSONAL HISTORY OF OTHER DISEASES OF THE CIRCULATORY SYSTEM (2) Hypertension, accelerated Code(s): I10 - ESSENTIAL (PRIMARY) HYPERTENSION (3) Hypothyroidism Code(s): E03.9 - HYPOTHYROIDISM, UNSPECIFIED Qualifiers: Hypothyroidism type: unspecified Qualified Code(s): E03.9 - Hypothyroidism , unspecified (4) Palpitations Code(s): R00.2 - PALPITATIONS (5) Tachycardia Code(s): R00.0 - TACHYCARDIA, UNSPECIFIED (6) GALLO (acute kidney injury) Code(s): N17.9 - ACUTE KIDNEY FAILURE, UNSPECIFIED (7) Diastolic dysfunction without heart failure Code(s): I51.89 - OTHER ILL-DEFINED HEART DISEASES (8) Hypertensive heart disease Code(s): I11.9 - HYPERTENSIVE HEART DISEASE WITHOUT HEART FAILURE Qualifiers: Heart failure presence: without heart failure Qualified Code(s): I11.9 - Hypertensive heart disease without heart failure (9) Paroxysmal atrial fibrillation with RVR Code(s): I48.0 - PAROXYSMAL ATRIAL FIBRILLATION (10) Status post placement of implantable loop recorder Code(s): Z95.818 - PRESENCE OF OTHER CARDIAC IMPLANTS AND GRAFTS Assessment/Plan 06/17/2019 Echo: Normal LV size and fxn, tr-mild MR 05/05/2018 Preserved LV fxn P-Myoview: Mild apical ischemia LVEF 60% 1. Palpitations PAF with RVR now in SR with h/o RFA @ [facility] 2. Near syncope with normal EP study and s/p Medtronic ILR 05/2018 3. Hypothyroidism 4. Diastolic dysfunction 5. GALLO referable to hemodynamic alterations resolving P:1. Continue sotalol 80 bid, Eliquis 5 bid, Norvasc 5 qd, Lasix 20 qd, lisinopril 20 qd, Lipitor 40 qd 2. ILR interrogation reveals PAF with 3-4 sec pauses same as previous 3. DCCV deferred with achievement of SR 4. F/u with Dr. Cyril Del Castillo of [facility] or our office if she decides to seek care locally upon d/c, consideration for repeat ablation as outpatient if arrhythmia recurs despite antiarrhythmic therapy 5. OSAS screen as outpatient
--- NOTE | 2019-06-19 11:32 | PN ---
Progress Note (short form) - Note Progress Note: Resting in NAD. HR and BP better. Denies shortness of breath. No CP. Intake & Output 06/16/19 06/17/19 06/18/19 06/19/19 23:59 23:59 23:59 23:59 Intake Total 440 Balance 440 Weight 228 lb 217 lb 9 oz 219 lb 12.285 oz Last Vital Signs Temp Pulse Resp BP Pulse Ox 97.9 F 51 L 19 154/60 97 06/19/19 10:32 06/19/19 10:32 06/19/19 10:32 06/19/19 10:32 06/19/19 09:00 Active Medications Amlodipine Besylate (Norvasc -) 5 mg PO HS [facility] Last Admin: 06/18/19 21:21 Dose: 5 mg Apixaban (Eliquis -) 5 mg PO BID [facility] Last Admin: 06/19/19 09:49 Dose: 5 mg Atorvastatin Calcium (Lipitor -) 40 mg PO HS [facility] Last Admin: 06/18/19 21:21 Dose: 40 mg Furosemide (Lasix -) 20 mg PO DAILY [facility] Last Admin: 06/19/19 09:49 Dose: 20 mg Levothyroxine Sodium (Synthroid -) 100 mcg PO DAILY@0700 [facility] Last Admin: 06/19/19 06:43 Dose: 100 mcg Lisinopril (Prinivil) 20 mg PO DAILY [facility] Last Admin: 06/19/19 09:49 Dose: 20 mg Sotalol HCl (Betapace -) 80 mg PO BID [facility] Last Admin: 06/19/19 09:48 Dose: Not Given Gen: NAD at rest Heart: Slow AFib Lung: decreased breath sounds at the bases Abd: soft, nontender Ext: + edema Laboratory Results - last 24 hr 06/19/19 06/19/19 06/19/19 05:28 05:28 05:28 WBC 7.9 RBC 3.82 Hgb 11.8 Hct 35.3 MCV 92.4 MCH 30.9 MCHC 33.4 RDW 14.3 Plt Count 213 MPV 9.3 PT with INR 19.90 H INR 1.68 H Sodium 138 Potassium 3.8 Chloride 102 Carbon Dioxide 31 Anion Gap 5 L BUN 29.1 H Creatinine 1.2 Est GFR (CKD-EPI)AfAm 51.92 Est GFR (CKD-EPI)NonAf 44.80 Random Glucose 85 Calcium 9.0 A/P Hypertensive Urgency improving Atrial Fibrillation LV Diastolic Dysfunction HTN Hyperlipidemia Hypothyroidism R/O OSAS - BP control - rate/rhythm control per Cardiology - monitor QTc - continue anticoagulation - for DCCV - O2 to keep SpO2 >90% - local wound care to leg - telemetry monitoring - Sleep Screen Dr Ferguson
[2019-06-19] MEDS ORDERED: PT OWN MED DRAWER 7, Y5N ONE ×2 (12:16→18:46)
--- NOTE | 2019-06-19 14:21 | EKG ---
Test Reason : Blood Pressure : / mmHG Vent. Rate : 054 BPM Atrial Rate : 054 BPM P-R Int : 224 ms QRS Dur : 104 ms QT Int : 514 ms P-R-T Axes : 039 020 164 degrees QTc Int : 487 ms SINUS BRADYCARDIA WITH 1ST DEGREE A-V BLOCK LEFT VENTRICULAR HYPERTROPHY WITH REPOLARIZATION ABNORMALITY ABNORMAL ECG Confirmed by MARTHA BRAY MD ([id number]) on 06/19/2019 2:21:19 PM Referred By: RUPSEH URIOSTEGUI Confirmed By:MARTHA BRAY MD
[2019-06-19] MEDS: amLODIPine BESYLATE 5 MG TABLET (FP) PO SCH (21:35)
[2019-06-19] MEDS: ATORVASTATIN CA 40 MG TABLET (FP) PO SCH (21:35)
[2019-06-20] MEDS: LEVOTHYROXINE NA 100 MCG TABLET (FP) PO SCH (06:14)
[2019-06-20 06:31] LABS: HEMATOCRIT 35.6 % (32.4-45.2); HEMOGLOBIN 11.9 GM/dL (10.7-15.3); MCH 30.7 pg (25.7-33.7); MCHC 33.3 g/dl (32.0-36.0); MEAN CELL VOLUME 92.1 fl (80-96); MEAN PLT VOLUME 9.6 fl (7.5-11.1); PLATELET COUNT 210 K/MM3 (134-434); RBC 3.86 M/mm3 (3.60-5.2); RDW 14.6 % (11.6-15.6)
[2019-06-20 06:55] LABS: BLOOD UREA NITROGEN 25.7 mg/dL (7-18); CALCIUM 9.2 mg/dL (8.5-10.1); CREATININE 1.1 mg/dL (0.55-1.3); MAGNESIUM 2.4 mg/dL (1.8-2.4); POTASSIUM 3.7 mmol/L (3.5-5.1)
[2019-06-20] MEDS: LISINOPRIL 20 MG TABLET (FP) PO SCH (09:30)
[2019-06-20] MEDS: APIXABAN 5 MG TABLET PO SCH (09:30)
[2019-06-20] MEDS: FUROSEMIDE 20 MG TABLET (FP) PO SCH (09:30)
[2019-06-20] MEDS: SOTALOL HCL 80 MG TABLET (FP) PO SCH (09:31)
--- NOTE | 2019-06-20 10:00 | PN ---
Progress Note, Physician Chief Complaint: Events noted Currently in Atrial fibrillation - rate controlled History of Present Illness: Patient was seen and examined. Awake and alert. Chart was reviewed Denies chest pain, SOB or palpitations - Current Medication List Current Medications: Active Medications Amlodipine Besylate (Norvasc -) 5 mg PO HS [facility] Last Admin: 06/19/19 21:35 Dose: 5 mg Apixaban (Eliquis -) 5 mg PO BID [facility] Last Admin: 06/20/19 09:30 Dose: 5 mg Atorvastatin Calcium (Lipitor -) 40 mg PO HS [facility] Last Admin: 06/19/19 21:35 Dose: 40 mg Furosemide (Lasix -) 20 mg PO DAILY [facility] Last Admin: 06/20/19 09:30 Dose: 20 mg Levothyroxine Sodium (Synthroid -) 100 mcg PO DAILY@0700 [facility] Last Admin: 06/20/19 06:14 Dose: 100 mcg Lisinopril (Prinivil) 20 mg PO DAILY [facility] Last Admin: 06/20/19 09:30 Dose: 20 mg Sotalol HCl (Betapace -) 80 mg PO BID [facility] Last Admin: 06/20/19 09:31 Dose: 80 mg - Objective Vital Signs: Vital Signs Temperature 98.1 F 06/20/19 06:00 Pulse Rate 56 L 06/20/19 06:00 Respiratory Rate 16 06/20/19 06:00 Blood Pressure 166/92 06/20/19 06:00 O2 Sat by Pulse Oximetry (%) 97 06/19/19 20:14 Eyes: Yes: PERRL HENT: Yes: Atraumatic Neck: Yes: Supple Cardiovascular: Yes: Pulse Irregular, S1, S2 Respiratory: Yes: CTA Bilaterally Gastrointestinal: Yes: Normal Bowel Sounds, Soft. No: Tenderness Edema: No Labs: CBC, BMP 06/20/19 05:28 06/20/19 05:28 INR, PTT INR 1.68 (0.83-1.09) H 06/19/19 05:28 Problem List - Problems (1) H/O radiofrequency ablation for complex left atrial arrhythmia Code(s): Z98.890 - OTHER SPECIFIED POSTPROCEDURAL STATES; Z86.79 - PERSONAL HISTORY OF OTHER DISEASES OF THE CIRCULATORY SYSTEM (2) Hypertension, accelerated Code(s): I10 - ESSENTIAL (PRIMARY) HYPERTENSION (3) Hypothyroidism Code(s): E03.9 - HYPOTHYROIDISM, UNSPECIFIED Qualifiers: Hypothyroidism type: unspecified Qualified Code(s): E03.9 - Hypothyroidism , unspecified (4) GALLO (acute kidney injury) Code(s): N17.9 - ACUTE KIDNEY FAILURE, UNSPECIFIED (5) Diastolic dysfunction without heart failure Code(s): I51.89 - OTHER ILL-DEFINED HEART DISEASES (6) Paroxysmal atrial fibrillation with RVR Code(s): I48.0 - PAROXYSMAL ATRIAL FIBRILLATION (7) Status post placement of implantable loop recorder Code(s): Z95.818 - PRESENCE OF OTHER CARDIAC IMPLANTS AND GRAFTS Assessment/Plan 1. PAF, persistent AF with slow rate, history of RFA 2. Near syncope with normal EP study and s/p Medtronic ILR 05/2018 3. Hypothyroidism 4. Diastolic dysfunction 5. GALLO PLAN: 1. Continue Sotalol 80 mg BID, Eliquis 5 mg BID, increase Norvasc to 10 mg QD, continue Lasix 20 mg QD, Lisinopril 20 mg QD and Lipitor 40 mg QD 2. Synchronized cardioversion can be scheduled as outpatient. 3. OSAS screen as outpatient 4. Patient wishes to follow up [facility] to follow. Discharge planning on above medical therapy Baljit Fowler MD
[2019-06-20] MEDS ORDERED: amLODIPine BESYLATE 10 MG TABLET (FP) PO SCH (10:02)
[2019-06-20 13:09] VITALS: BMI 40.0
[2019-06-20 13:47] VITALS: TEMP 97.9
--- NOTE | 2019-06-20 14:38 | DS ---
Physical Exam: SUBJECTIVE: Patient seen and examined Patient is a 74 year old woman with a PMH of Afib (on eliquis-failed ablations) , Loop recorder (syncopal episode x5 months ago, and 1 episode of "near syncope " per pt on Jun 09), Hypothyroidism, diastolic dysfunction, HLD and HTN, who presents to the ER with tachycardia and chest palpitations since earlier tonight. Patient notes she was eating dinner, when she had an Afib experience that went into a rapid heart beat. She states her heart rate was 110, and she could feel her heart beating quicker than normal. Patient notes this has happened in the past, but it typically resolves after a few minutes. She also noted her blood pressure is higher than usual (she measures BP weekly, it is usually ~120s/80s). She states her palpitations are less intense while in the ER. Patient reports a similar episode 5 months ago, where she was seen in [facility] and admitted. Denies fever, chills, vomiting, chest pain, SOB, abdominal pain, dysuria, or diarrhea. Deneis tobacco, alcohol or illicit drug use. No recent travels or obvious sick contacts. Has FH of HTN and Colon cancer. Of note, per the patient's med list she is prescribed Lisinopril 20 daily however the patient reports that she ran out of this medication 1 year ago and her cloth finishing range tender told her to just stop taking it. She is also prescribed lasix 20mg daily however she reports she only takes this medication when she is feeling bloated. Also unclear whether patient takes metoprolol tartrate or succinate, uses [facility] pharmacy however computer system was down last night and we were unable to med rec the patient. ER course was notable for: (1) BP 205/ 108 with EKG showing sinus tachycardia and ST depressions in V4, 5, 6 and T wave inversion in leads 2,3,aVL (2) Dr. Maurice called by ED, advised giving patient ASA, metoprolol and lasix ( 162 ASA, 50 metop and 60 lasix admin), pt BP improved to 169/89 (3) troponin negative OBJECTIVE: Vital Signs Period Temp Pulse Resp BP Sys/Soria Pulse Ox Last 24 Hr 97.7 F-98.2 F 48-79 14-20 135-187/58-98 97-100 PHYSICAL EXAM GENERAL: The patient is awake, alert, and fully oriented, in no acute distress. HEAD: Normal with no signs of trauma. EYES: PERRL, extraocular movements intact, sclera anicteric, conjunctiva clear. ENT: Ears normal, nares patent, oropharynx clear without exudates, moist mucous membranes. NECK: Trachea midline, full range of motion, supple. LUNGS: Breath sounds equal, clear to auscultation bilaterally, no wheezes, no crackles, no accessory muscle use. HEART: Regular rate and rhythm, S1, S2 without murmur, rub or gallop. ABDOMEN: Soft, nontender, nondistended, normoactive bowel sounds, no guarding, no rebound, no hepatosplenomegaly, no masses. EXTREMITIES: 2+ pulses, warm, well-perfused, no edema. NEUROLOGICAL: Cranial nerves II through XII grossly intact. Normal speech, gait not observed. PSYCH: Normal mood, normal affect. SKIN: Warm, dry, normal turgor, no rashes or lesions noted. LABS Laboratory Results - last 24 hr 06/20/19 06/20/19 05:28 05:28 WBC 7.0 RBC 3.86 Hgb 11.9 Hct 35.6 MCV 92.1 MCH 30.7 MCHC 33.3 RDW 14.6 Plt Count 210 MPV 9.6 Sodium 141 Potassium 3.7 Chloride 104 Carbon Dioxide 31 Anion Gap 6 L BUN 25.7 H Creatinine 1.1 Est GFR (CKD-EPI)AfAm 57.68 Est GFR (CKD-EPI)NonAf 49.77 Random Glucose 77 Calcium 9.2 Magnesium 2.4 HOSPITAL COURSE: Date of Admission:06/17/19 Date of Discharge: 06/20/19 1. PAF, persistent AF with slow rate, history of RFA 2. Near syncope with normal EP study and s/p [employer] ILR 05/2018 3. Hypothyroidism 4. Diastolic dysfunction 5. GALOL PLAN: 1. Continue Sotalol 80 mg BID, Eliquis 5 mg BID, increase Norvasc to 10 mg QD, continue Lasix 20 mg QD, Lisinopril 20 mg QD and Lipitor 40 mg QD 2. Synchronized cardioversion can be scheduled as outpatient. 3. OSAS screen as outpatient 4. [facility]ations Amlodipine Besylate (Norvasc -) 10 mg PO [facility] Apixaban (Eliquis -) 5 mg PO BID [facility] Last Admin: 06/20/19 09:30 Dose: 5 mg Atorvastatin Calcium (Lipitor -) 40 mg PO HS [facility] Last Admin: 06/19/19 21:35 Dose: 40 mg Furosemide (Lasix -) 20 mg PO DAILY [facility] Last Admin: 06/20/19 09:30 Dose: 20 mg Levothyroxine Sodium (Synthroid -) 100 mcg PO DAILY@0700 [facility] Last Admin: 06/20/19 06:14 Dose: 100 mcg Lisinopril (Prinivil) 20 mg PO DAILY [facility] Last Admin: 06/20/19 09:30 Dose: 20 mg Sotalol HCl (Betapace -) 80 mg PO BID [facility] Last Admin: 06/20/19 09:31 Dose: 80 mg Minutes to complete discharge: 30 Discharge Summary Problems reviewed: Yes Reason For Visit: PALPITATIONS, STATUS POST PLACEMENT OF IMPLANTABLE Current Active Problems Ankle injury (Acute) H/O radiofrequency ablation for complex left atrial arrhythmia (Acute) Hypertension, accelerated (Acute) Hypothyroidism (Acute) Palpitations (Acute) Tachycardia (Acute) - Instructions Diet, Activity, Other Instructions: You were seen here due to your high blood pressure. We briefly put you on IV medications as we restarted your home medications which controlled your blood pressure. Your symptoms resolved and all your imaging has been negative Please continue your medications as below It is important to stay on a low-salt diet as well We switched you from Metoprolol to Sotalol during your hospitlization to help with your heart rhythm --Please continue Sotalol 80mg TWICE daily --STOP taking your Metoprolol (aka: toprol xl or lopressor) Follow-up with your primary care provider for your blood pressure check in 3-5 days --You will need to follow-up an ultrasound or MRI for your gallbladder, however this can be performed during your outpatient visits If you would like to switch to a [facility] associated with [facility] close to the area we referred you to Dr. Maurice who so you in the hospital. His office is local and you can set up an appointment in 2 weeks for follow-up. Referrals: Cyril Del Castillo MD [Non Staff, Medical] - (3-5 days) - Home Medications Comprehensive Discharge Medication List: Ambulatory Orders Amlodipine Besylate 5 mg PO DAILY 01/13/17 Apixaban [Eliquis] 5 mg PO BID 01/13/17 Ergocalciferol (Vitamin D2) [Vitamin D2] 2,000 unit PO DAILY 01/13/17 Furosemide [Lasix] 20 mg PO DAILY 01/13/17 Levothyroxine [Synthroid -] 100 mcg PO DAILY 01/13/17 Lisinopril 20 mg PO DAILY 06/17/19 Sotalol HCl [Betapace -] 80 mg PO BID #60 tablet 06/18/19 Amlodipine Besylate [Norvasc -] 10 mg PO HS #30 tablet 06/20/19 Apixaban [Eliquis -] 5 mg PO BID #60 tablet 06/20/19 Atorvastatin Ca [Lipitor] 40 mg PO HS #30 tablet 06/20/19 Furosemide [Lasix -] 20 mg PO DAILY #30 tablet 06/20/19 Levothyroxine [Synthroid -] 100 mcg PO DAILY@0700 #30 tablet 06/20/19 Lisinopril [Prinivil] 20 mg PO DAILY #30 tablet 06/20/19 Sotalol HCl [Betapace -] 80 mg PO BID #60 tablet 06/20/19 This patient is new to me today: Yes Date on this admission: 06/20/19 Emergency Visit: Yes ED Registration Date: 06/17/19 Care time: The patient presented to the Emergency Department on the above date and was hospitalized for further evaluation of their emergent condition. Critical Care patient: No - Discharge Referral Referred to [facility] Med P.C.: No
[2019-06-20 15:22] VITALS: BP 126/88; PULSE 55
== END 2019-06-20 16:04 | disposition home or self-care (01) | DRG 309 ==
LOC: JER 20:58 → JERBED 06-17 00:11 → J2W 06-17 03:09 → JICU 06-17 05:56 → J2W 06-17 18:23
PROVIDERS: ADMIT Internal Medicine; ATTEND Internal Medicine
DX: I48.19 Other persistent atrial fibrillation (principal); I16.1 Hypertensive emergency; I50.30 Unspecified diastolic (congestive) heart failure; Z68.41 Body mass index [BMI] 40.0-44.9, adult; E03.9 Hypothyroidism, unspecified; R00.0 Tachycardia, unspecified; E78.5 Hyperlipidemia, unspecified; I16.0 Hypertensive urgency; E66.8 Other obesity; R55 Syncope and collapse; R00.2 Palpitations; K76.0 Fatty (change of) liver, not elsewhere classified; E87.6 Hypokalemia; G47.33 Obstructive sleep apnea (adult) (pediatric); I11.0 Hypertensive heart disease with heart failure; S99.911A Unspecified injury of right ankle, initial encounter; R00.1 Bradycardia, unspecified
CPT/HCPCS: 36415; 70450-TC; 71045-TC-FY; 76705-TC; 80048; 80053; 80061; 81003; 82550; 82977; 83721; 83735; 84100; 84436; 84443; 84484; 85025; 85027; 85610; 93005; 93010; 93306-TC; 97116-GP; 97161-GP; 99285-25; J7030